=== PATIENT | female | born 1945 | race Caucasian/White ===

== ENCOUNTER → 2017-03-24 | Outpatient (CLI) | payer MEDICARE, OTHER ==
[~2017-03-24] MED LIST: AC325T PO; ACID REDUCER; AMIO100T2; ASP325TEC PO; ASP81TEC PO; ASPIRIN; CALCIUM; DLT30T PO; HCT25T PO; MULT-608 PO; MULTIVITAMIN; NF-TYLARTH PO; OMEP20CA12 PO; OXYC-12 PO; PRV20T PO
--- NOTE | 2017-03-24 13:45 | Diagnostic Imaging Report ---
INDICATION: Lower abdominal pain in postmenopausal patient. FINDINGS: Both transabdominal and transvaginal imaging is performed. There is moderate amount of bowel which obscures the adnexal regions. The uterus measures 4.6 x 3.4 x 2.1 cm with endometrial thickness of 0.3 cm. There is no evidence of mass in the pelvis. There is no significant free fluid. IMPRESSION: Limited examination without abnormality seen in the postmenopausal uterus. The ovaries were not identified due to overlying bowel. Dictated by: Dictated on workstation # [id number]
== END ==
LOC: RAD 10:50
PROVIDERS: ATTEND Internal Medicine
DX: R10.84 Generalized abdominal pain (principal)
CPT/HCPCS: 76830; 76856

== ENCOUNTER → 2017-04-01 | Outpatient (CLI) | payer MEDICARE, OTHER ==
[~2017-04-01] MED LIST changes: +IOHEXOL 350 MG/ML 100 ML (OMNIPAQUE 350) VIAL IV ONE
[2017-04-01 10:46] LABS: BLOOD UREA NITROGEN 13 MG/DL (7-18); BUN/CREATININE RATIO 17; CREATININE SERUM 0.77 MG/DL (0.60-1.30); GFR ESTIMATED > 60
[2017-04-01] MEDS: CATHETER FLUSH 10 ML SYR IV PRN ×2 (11:46→12:01)
--- NOTE | 2017-04-01 15:19 | Diagnostic Imaging Report ---
PROCEDURE: CT abdomen and pelvis with contrast. TECHNIQUE: Multiple contiguous axial images were obtained through the abdomen and pelvis after administration of intravenous contrast. INDICATION: Generalized abdominal pain. 100 mL of Omnipaque 350 is administered intravenously. FINDINGS: The lung bases appear clear. There is a mass in the left suprarenal region containing fat and soft tissue densities with measurements of 4.7 x 3.5 x 4.3 cm. 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 There is evidence of prior cholecystectomy with mild prominence of the CBD caliber. The spleen is not enlarged. The pancreas appears unremarkable. The kidneys have symmetric enhancement and contrast excretion. There is a simple-appearing cyst in the lower pole of the right kidney measuring 3.4 cm. The abdominal aorta is normal in caliber. No para-aortic significantly enlarged node is seen. There is diverticulosis mostly within the sigmoid colon with no evidence of diverticulitis. No bowel obstruction. There is no significant free fluid or fluid collection in the abdomen or pelvis. There is scoliosis of the lumbar spine convex to the right centered at L3 level with significant associated disc and facet degenerative changes. Significant degenerative changes at the SI joints also seen. IMPRESSION: 1. Diverticulosis. No diverticulitis. 2. Fat-containing 4.7 cm mass appears to arise from the left adrenal gland, suggestive of a myolipoma. Dictated by: Dictated on workstation # [id number]
== END ==
LOC: RAD 10:07
PROVIDERS: ATTEND Internal Medicine
DX: Z00.00 Encounter for general adult medical examination without abnormal findings (principal); R10.84 Generalized abdominal pain
CPT/HCPCS: 36415; 74177; 82565; 84520

== ENCOUNTER → 2017-06-09 | Outpatient (CLI) | payer MEDICARE, OTHER ==
[~2017-06-09] MED LIST changes: -IOHEXOL 350 MG/ML 100 ML (OMNIPAQUE 350) VIAL IV ONE
== END ==
LOC: CARD 10:02
PROVIDERS: ATTEND Physician Assistant
DX: I65.23 Occlusion and stenosis of bilateral carotid arteries (principal); K21.9 Gastro-esophageal reflux disease without esophagitis; R00.2 Palpitations; I27.2 Other secondary pulmonary hypertension
CPT/HCPCS: 93306

== ENCOUNTER 2017-06-29 17:45 | Emergency (ER) | payer MEDICARE, OTHER ==
[~2017-06-29] VITALS: Ht 157.5 cm; Wt 87.1 kg
--- NOTE | 2017-06-29 19:29 | Diagnostic Imaging Report ---
INDICATION: Injury to left second toe AP and lateral and oblique views of the left toes were obtained. There are diffuse degenerative changes of the interphalangeal joints. There is degenerative change of the first MTP joint. No acute fracture or acute bony abnormality is visualized. IMPRESSION: No acute fracture or acute bony abnormality. 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 Dictated by: Dictated on workstation # [id number]
--- NOTE | 2017-06-29 19:41 | ED Lower Extremity ---
General Chief Complaint: Lower Extremity Stated Complaint: L FOOT TOE INJ Nursing Triage Note: pt was walking earlier et she felt like her left 2nd toe curled under et she felt a pop. bruising noted at distal joint. pt c/o persistent pain et decreased ROM. Nursing Sepsis Screen: No Definite Risk Source: patient Exam Limitations: no limitations History of Present Illness Time seen by provider: 19:41 Initial Comments 72-year-old female patient presents to the emergency department with complaints of left second toe pain after bending the toe under her foot when she tripped. Denies falling, hitting her head, neck pain, back pain. Location Injury Occurred: home Onset: this morning Pain/Injury Location: left 2nd toe Method of Injury: other (tripped) Modifying Factors: Worse With Movement Allergies and Home Medications Allergies Coded Allergies: Sulfa(Sulfonamide Antibiotics) (Verified Allergy, Unknown, 02/09/06) Uncoded Allergies: TAPE (Allergy, Unknown, 02/09/06) Home Medications Aspirin 81 Mg Tabec, 81 MG PO EVERY OTHER DAY, (Reported) Diltiazem Hcl 30 Mg Tab, 1 TAB PO QID, (Reported) Hydrochlorothiazide 25 Mg Tablet, 1 EACH PO DAILY, (Reported) Multivitamins 1 Tab Tablet, 1 TAB PO DAILY, (Reported) Omeprazole 20 Mg Capsule.dr, 1 CAP PO DAILY, #30 (Reported) Oxycodone Hcl/Acetaminophen 1 Each Tablet, 1-2 TAB PO Q4HRS. PRN, #90 Ref 0 ( Reported) Pravastatin Sod 20 Mg Tab, 20 MG PO DAILY, (Reported) Constitutional: no symptoms reported Musculoskeletal: see HPI Skin: change in color (bruising left second toe) Psychiatric/Neurological: Denies Numbness, Denies Paresthesia, Denies Tingling , Denies Weakness All Other Systems Reviewed Negative Unless Noted: Yes (Negative excepted noted.) Past Ozztyph-Pwpuqp-Xjsfbp Hx Patient Social History Alcohol Use: Denies Use Recreational Drug Use: No Smoking Status: Never a Smoker 2nd Hand Smoke Exposure: No Recent Foreign Travel: No Contact w/Someone Who Travel: No Recent Infectious Disease Expo: No Recent Hopitalizations: No Immunizations Up To Date Tetanus Booster (TDap): Unknown Date of Pneumonia Vaccine: Sep 01, 2011 Date of Influenza Vaccine: Sep 30, 2012 Seasonal Allergies Seasonal Allergies: No Surgeries HX Surgeries: No Surgeries: Orthopedic Respiratory Hx Respiratory Disorders: No Cardiovascular Hx Cardiac Disorders: Yes Cardiac Disorders: Atrial Fibrillation, High Cholesterol, Hypertension Neurological Hx Neurological Disorders: No Reproductive System Hx Reproductive Disorders: No Genitourinary Hx Genitourinary Disorders: No Gastrointestinal Hx Gastrointestinal Disorders: Yes Gastrointestinal Disorders: Gastroesophageal Reflux, Gall Bladder Disease Musculoskeletal Hx Musculoskeletal Disorders: Yes (DJD) Musculoskeletal Disorders: Arthritis Endocrine Hx Endocrine Disorders: No HEENT HX ENT Disorders: No Psychosocial Hx Psychiatric Problems: No Integumentary HX Skin/Integumentary Disorder: No Blood Transfusions Hx Blood Disorders: No Reviewed Nursing Assessment Reviewed/Agree w Nursing PMH: Yes Family Medical History Significant Family History: No Pertinent Family Hx Physical Exam Vital Signs Vital Sign - Last 12Hours 06/29/17 06/29/17 18:09 19:56 Temp 97.1 Pulse 67 Resp 18 B/P (MAP) 163/64 Pulse Ox 94 O2 Delivery Room Air Capillary Refill : Less Than 3 Seconds General Appearance: WD/WN, no apparent distress Cardiovascular: normal peripheral pulses, no edema Legs: bilateral leg non-tender, bilateral leg normal inspection, bilateral leg normal range of motion, bilateral leg no evidence of injury Knees: bilateral knee non-tender, bilateral knee normal inspection, bilateral knee normal range of motion, bilateral knee no evidence of injury Ankles: bilateral ankle non-tender, bilateral ankle normal inspection, bilateral ankle normal range of motion, bilateral ankle no evidence of injury Feet: right foot non-tender, right foot normal inspection, bilateral foot normal range of motion, right foot no evidence of injury, left foot bone tenderness (distal left second toe), left foot ecchymosis (distal left second toe), left foot pain (left second toe), left foot soft tissue tenderness (left second toe) Neurologic/Tendon: normal sensation, normal motor functions, normal tendon functions, responds to pain, no evidence tendon injury Neurologic/Psychiatric: no motor/sensory deficits, alert, normal mood/affect, oriented x 3 Skin: normal color, warm/dry, ecchymosis (ecchymosis left second toe) Progress/Results/Core Measures Results/Orders My Orders Orders - PEDRO HUNT Toe(S) (06/29/17 19:08) Vital Signs/I&O Vital Sign - Last 12Hours 06/29/17 06/29/17 18:09 19:56 Temp 97.1 97.0 Pulse 67 65 Resp 18 18 B/P (MAP) 163/64 Pulse Ox 94 O2 Delivery Room Air Blood Pressure Mean: 97 Diagnostic Imaging Diagonstic Imaging: Xray Plain Films/CT/US/NM/MRI: other (left foot) Comments There are diffuse degenerative changes of the interphalangeal joints. There is degenerative change of the first MTP joint. No acute fracture or acute bony abnormality is visualized. IMPRESSION: No acute fracture or acute bony abnormality. 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 Dictated by: Dictated on workstation # [id number] Reviewed: Reviewed by Me (radiology report reviewed by me) Departure Communication Progress Notes Diagnostic findings discussed with the patient. Plan for discharge to home. Impression Impression: Primary Impression: Sprain of toe Qualified Codes: S93.509A - Unspecified sprain of unspecified toe(s), initial encounter Disposition: HOME, SELF-CARE Condition: Improved Departure-Patient Inst. Decision time for Depature: 19:49 Referrals: ABDIEL POLO DO (PCP/Family) Primary Care Physician Patient Instructions: Toe Injury (DC) Add. Discharge Instructions: All discharge instructions reviewed with patient and/or family. Voiced understanding. Continue usual home medications. Tylenol extra strength over- the-counter as directed for pain. Ibuprofen 800 mg by mouth every 8 hours as needed for pain. Elevate the foot on pillows, ice pack for 20 minute intervals as needed for pain. Collins tape the toes as instructed. Follow-up with your family practitioner for recheck if no improvement in symptoms in 7-10 days. Return to the emergency department for worsened symptoms or any other concerns. PEDRO HUNT Jun 29, 2017 19:41
[2017-06-29 19:56] VITALS: BP 154/62
== END 2017-06-29 19:54 | disposition home or self-care (01) ==
LOC: EDUNIT# 17:45 → ER 17:46
DX: S93.515A Sprain of interphalangeal joint of left lesser toe(s), initial encounter (principal); M19.072 Primary osteoarthritis, left ankle and foot; K21.9 Gastro-esophageal reflux disease without esophagitis; I48.91 Unspecified atrial fibrillation; E78.00 Pure hypercholesterolemia, unspecified; I10 Essential (primary) hypertension; Z98.890 Other specified postprocedural states; W18.40XA Slipping, tripping and stumbling without falling, unspecified, initial encounter; Y92.009 Unspecified place in unspecified non-institutional (private) residence as the place of occurrence of the external cause
CPT/HCPCS: 73660; 99283

== ENCOUNTER → 2017-10-12 | Outpatient (CLI) | payer MEDICARE, OTHER ==
--- NOTE | 2017-10-13 10:52 | Diagnostic Imaging Report ---
Bilateral screening mammogram 2D views with tomosynthesis The current study was also evaluated with a Computer Aided Detection (CAD) system. Indication: Screening. No current complaints stated on the questionnaire. COMPARISON: 10/06/16. FINDINGS: The breasts are composed of heterogeneously dense parenchyma which may decrease mammographic sensitivity. Benign-appearing calcifications are noted. Allowing for technique and positional differences, no suspicious change is seen. IMPRESSION: Dense breasts with no definite change. ACR BI-RADS Category 2: Benign findings. Result letter will be mailed to the patient. Note: At least 10% of breast cancer is not imaged by mammography. Dictated by: Dictated on workstation # [id number]
== END ==
LOC: RAD 09:57
PROVIDERS: ATTEND Internal Medicine
DX: Z12.31 Encounter for screening mammogram for malignant neoplasm of breast (principal)
CPT/HCPCS: 77067

== ENCOUNTER → 2018-01-04 | Outpatient (CLI) | payer MEDICARE, OTHER ==
--- NOTE | 2018-01-04 12:35 | Diagnostic Imaging Report ---
INDICATION: Intractable headaches. TECHNIQUE: Noncontrast brain CT is performed. COMPARISON: There is no prior study for comparison. FINDINGS: There are mild atrophic changes. There are no extra-axial fluid collections. No intracranial hemorrhage. No intracranial mass or mass effect. No midline shift. The ventricles are normal in size and position. There are no acute parenchymal abnormalities in the brain. Calvarial windows are unremarkable. The visualized portions of the paranasal sinuses show no overt opacification. There is some opacification of the mastoid air cells on the left side. IMPRESSION: No acute intracranial abnormality or hemorrhage. Partial opacification of left mastoid air cells. No other significant findings. Dictated by: Dictated on workstation # [id number]
== END ==
LOC: RAD 11:32
PROVIDERS: ATTEND Internal Medicine
DX: G44.211 Episodic tension-type headache, intractable (principal); H74.8X2 Other specified disorders of left middle ear and mastoid
CPT/HCPCS: 70450

== ENCOUNTER 2018-06-07 05:17 | Emergency (ER) | payer MEDICARE ==
[~2018-06-07] VITALS: Ht 157.5 cm; Wt 87.1 kg
[2018-06-07] MEDS ORDERED: ASPIRIN 81 MG CHEW (CHILDREN'S ASA) PO ONE (05:30)
[2018-06-07 05:59] LABS: BASOPHILS % (AUTO) 0 % (0-10); EOSINOPHILS # (AUTO) 0.1 10^3/uL (0.0-0.3); EOSINOPHILS % (AUTO) 2 % (0-10); HEMATOCRIT 43 % (35-52); HEMOGLOBIN 14.4 G/DL (11.5-16.0); LYMPHOCYTES # (AUTO) 1.9 X 10^3 (1.0-4.0); LYMPHOCYTES % (AUTO) 33 % (12-44); MEAN CORPUSCULAR HEMOGLOBIN 31 PG (25-34); MEAN CORPUSCULAR HGB CONC 33 G/DL (32-36); MEAN CORPUSCULAR VOLUME 95 FL (80-99); MEAN PLATELET VOLUME 10.7 FL (7.4-10.4); MONOCYTES # (AUTO) 0.6 X 10^3 (0.0-1.0); MONOCYTES % (AUTO) 11 % (0-12); NEUTROPHILS % (AUTO) 54 % (42-75); PLATELET COUNT 173 10^3/uL (130-400); RED BLOOD COUNT 4.58 10^6/uL (4.35-5.85); RED CELL DISTRIBUTION WIDTH 12.9 % (10.0-14.5); WHITE BLOOD COUNT 5.6 10^3/uL (4.3-11.0)
--- NOTE | 2018-06-07 06:07 | ED Chest Pain ---
General Chief Complaint: Cardiac/General Problems Stated Complaint: CP Nursing Triage Note: patient reports palpitations starting at 0400 Nursing Sepsis Screen: No Definite Risk Source: patient Exam Limitations: no limitations History of Present Illness Date Seen by Provider: Jun 07, 2018 Time Seen by Provider: 05:21 Initial Comments Here with report of palpitations that started about 4 a.m. Patient states that she woke up and then shortly afterwards noted the palpitations. She is having some chest discomfort with this. She states that's not too bad that she is having a little bit more back pain. Does have history of atrial fibrillation. Denies vomiting or sweating but does feel weak. Timing/Duration: 1-3 hours, changing over time Severity/Quality: moderate, severe, pressure, other (palpitations) Location: central Radiation: arms (left) Prior CP/Workup: echocardiography, stress test Modifying Factors: improves with rest ASA po ARTIFICIAL FLOWERS SUPERVISOR: No NTG SL ARTIFICIAL FLOWERS SUPERVISOR: No Associated Symptoms: fatigue; No fever/chills; nausea/vomiting Allergies and Home Medications Allergies Coded Allergies: Sulfa(Sulfonamide Antibiotics) (Verified Allergy, Unknown, 02/09/06) Uncoded Allergies: TAPE (Allergy, Unknown, 02/09/06) Home Medications Aspirin 81 Mg Tabec, 81 MG PO EVERY OTHER DAY, (Reported) Diltiazem Hcl 30 Mg Tab, 1 TAB PO QID, (Reported) Hydrochlorothiazide 25 Mg Tablet, 1 EACH PO DAILY, (Reported) Multivitamins 1 Tab Tablet, 1 TAB PO DAILY, (Reported) Omeprazole 20 Mg Capsule.dr, 1 CAP PO DAILY, (Reported) Pravastatin Sod 20 Mg Tab, 20 MG PO DAILY, (Reported) Patient Home Medication List Home Medication List Reviewed: Yes Review of Systems Constitutional: see HPI; No chills, No fever EENTM: No Symptoms Reported Respiratory: Denies Cough, Denies Shortness of Air Cardiovascular: Chest Pain; Denies Edema; Irregular Heart Rate, Palpitations Gastrointestinal: See HPI Genitourinary: No Symptoms Reported Musculoskeletal: back pain; No muscle pain, No muscle stiffness Skin: no symptoms reported All Other Systems Reviewed Negative Unless Noted: Yes Past Eokvivv-Xfejmj-Jeaaxg Hx Past Med/Social Hx: Reviewed Nursing Past Med/Soc Hx Patient Social History Alcohol Use: Denies Use Recreational Drug Use: No Smoking Status: Former Smoker Type Used: Cigarettes 2nd Hand Smoke Exposure: No Recent Foreign Travel: No Contact w/Someone Who Travel: No Recent Infectious Disease Expo: No Recent Hopitalizations: No Physical Abuse: No Sexual Abuse: No Immunizations Up To Date Tetanus Booster (TDap): Unknown Date of Pneumonia Vaccine: Sep 01, 2011 Date of Influenza Vaccine: Sep 30, 2012 Seasonal Allergies Seasonal Allergies: No Past Medical History Surgeries: Yes Orthopedic Respiratory: No Cardiac: Yes Atrial Fibrillation, High Cholesterol, Hypertension Neurological: No Reproductive Disorders: No Genitourinary: No Gastrointestinal: Yes Gastroesophageal Reflux, Gall Bladder Disease Musculoskeletal: Yes (DJD) Arthritis Endocrine: No HEENT: No Cancer: No Psychosocial: No Nursing Suicide Risk Score: 0 Integumentary: No Blood Disorders: No Family Medical History Reviewed Nursing Family Hx No Pertinent Family Hx Physical Exam Vital Signs Vital Signs - First Documented 06/07/18 06/07/18 05:24 05:27 Temp 98.2 Pulse 96 Resp 18 B/P (MAP) 153/111 (125) Pulse Ox 100 O2 Delivery Room Air Capillary Refill : Less Than 3 Seconds Height, Weight, BMI Height: 5', 2.00" Weight: 192lbs 0.0oz, 87.026994qu Method:Stated ,36.31BMI General Appearance: WD/WN, Anxious, Mild Distress HEENT: PERRL/EOMI, Pharynx Normal Neck: Non Tender, Supple Respiratory: Chest Non Tender, Lungs Clear, Normal Breath Sounds Cardiovascular: Irregularly Irregular, Tachycardia, Other (patient converted to sinus rhythm during exam heart rate in the 70s and 80s) Gastrointestinal: Non Tender, Soft Extremity: Normal Range of Motion, Non Tender Neurologic/Psychiatric: Alert, Oriented x3 Skin: Normal Color, Warm/Dry Progress/Results/Core Measures Results/Orders Lab Results Laboratory Tests Test 06/07/18 05:50 Range/Units White Blood Count 5.6 4.3-11.0 10^3/uL Red Blood Count 4.58 4.35-5.85 10^6/uL Hemoglobin 14.4 11.5-16.0 G/DL Hematocrit 43 35-52 % Mean Corpuscular Volume 95 80-99 FL Mean Corpuscular Hemoglobin 31 25-34 PG Mean Corpuscular Hemoglobin Concent 33 32-36 G/DL Red Cell Distribution Width 12.9 10.0-14.5 % Platelet Count 173 130-400 10^3/uL Mean Platelet Volume 10.7 H 7.4-10.4 FL Neutrophils (%) (Auto) 54 42-75 % Lymphocytes (%) (Auto) 33 12-44 % Monocytes (%) (Auto) 11 0-12 % Eosinophils (%) (Auto) 2 0-10 % Basophils (%) (Auto) 0 0-10 % Neutrophils # (Auto) 3.0 1.8-7.8 X 10^3 Lymphocytes # (Auto) 1.9 1.0-4.0 X 10^3 Monocytes # (Auto) 0.6 0.0-1.0 X 10^3 Eosinophils # (Auto) 0.1 0.0-0.3 10^3/uL Basophils # (Auto) 0.0 0.0-0.1 10^3/uL Prothrombin Time 12.9 12.2-14.7 SEC INR Comment 1.0 0.8-1.4 Activated Partial Thromboplast Time 30 24-35 SEC Sodium Level 143 135-145 MMOL/L Potassium Level 3.3 L 3.6-5.0 MMOL/L Chloride Level 106 98-107 MMOL/L Carbon Dioxide Level 26 21-32 MMOL/L Anion Gap 11 5-14 MMOL/L Blood Urea Nitrogen 13 7-18 MG/DL Creatinine 0.80 0.60-1.30 MG/DL Estimat Glomerular Filtration Rate > 60 BUN/Creatinine Ratio 16 Glucose Level 105 70-105 MG/DL Calcium Level 9.9 8.5-10.1 MG/DL Magnesium Level 2.0 1.8-2.4 MG/DL Total Bilirubin 0.5 0.1-1.0 MG/DL Aspartate Amino Transf (AST/SGOT) 26 5-34 U/L Alanine Aminotransferase (ALT/SGPT) 16 0-55 U/L Alkaline Phosphatase 55 40-136 U/L Myoglobin 29.1 10.0-92.0 NG/ML Troponin I < 0.30 <0.30 NG/ML Total Protein 7.3 6.4-8.2 GM/DL Albumin 4.2 3.2-4.5 GM/DL My Orders Orders - WALDEMAR ESPINOZA MD Cbc With Automated Diff (06/07/18 05:20) Magnesium (06/07/18 05:20) Chest 1 View, Ap/Pa Only (06/07/18 05:20) Ekg Tracing (06/07/18 05:20) Cardiac Profile 1 (06/07/18 05:20) Comprehensive Metabolic Panel (06/07/18 05:20) Myoglobin Serum (06/07/18 05:20) Protime With Inr (06/07/18 05:20) Partial Thromboplastin Time (06/07/18 05:20) O2 (06/07/18 05:20) Monitor-Rhythm Ecg Trace Only (06/07/18 05:20) Lipid Panel (06/08/18 06:00) Aspirin Chewable Tablet (Baby Aspirin Ch (06/07/18 05:30) Saline Lock/Iv-Start (06/07/18 05:20) Medications Given in ED Current Medications Medications Dose Ordered Sig/Ramiro Route Start Time Stop Time Status Last Admin Dose Admin Aspirin 324 mg ONCE ONCE PO 06/07/18 05:30 06/07/18 05:31 DC 06/07/18 05:41 324 MG Vital Signs/I&O 06/07/18 06/07/18 05:24 05:27 Temp 98.2 Pulse 96 Resp 18 B/P (MAP) 153/111 (125) Pulse Ox 100 O2 Delivery Room Air Blood Pressure Mean: 125 Progress Progress Note : Progress Note Seen and evaluated. IV, labs, EKG and chest x-ray ordered. ASA 324 mg by mouth given. During IV start, patient converted to sinus rhythm initially in the rate of 90s but then settled down to the rate of 70s and 80s. States pain is a little better after. Monitor patient. 0640: I have talked with the patient at length about further testing. She remains in sinus rhythm. Labs reviewed and no significant findings. She has only been taking her diltiazem twice a day a low it is prescribed 3 times daily and can be taken 4 times daily as needed. She has done this to save cost. Her edi specialist is Dr. Barrios and I 'm not sure he knows about that. Patient states that she will return to 3 times daily on the diltiazem. She takes are aspirin 4 times a week and this is because she had stomach upset when she was taken at 7 times a week. This needs to be discussed with Dr. Barrios as well although she reports that he knows about this. Patient does not want to stay for further testing since she is feeling better. We did talk about repeating the enzymes at the 4 hour milo and she states that she would just like to go home. She denies significant chest pain now and states that it was only palpitations and she could feel her regular heartbeat. We discussed the risk and benefits and patient understands that she could have serious cardiac event that we won't find if we did not evaluate and this could be life-threatening. Discharged home with return precautions. Patient verbalized understanding instructions and agreement with plan. Initial ECG Impression Date: Jun 07, 2018 Initial ECG Impression Time: 05:19 Initial ECG Rate: 169 Initial ECG Rhythm: A Fib/Flutter Initial ECG Impression: Atrial Fibrillation w/RVR Comment Atrial fibrillation with rapid ventricular response. Will axis. No evidence of ST elevation UT. Change from previous. Interpreted by me. Diagnostic Imaging Diagonstic Imaging: Xray Plain Films/CT/US/NM/MRI: chest ([facility] Comments [facility] [place], [place] NAME: FRIDA ALMAGUER [facility] REC#: [id number] PT STATUS: REG ER : 1945 PHYSICIAN: WALDEMAR ESPINOZA MD ADMIT DATE: 06/07/18/ER Draft Date of Exam:06/07/18 CHEST 1 VIEW, AP/PA ONLY CLINICAL INDICATION: Patient with complains of heart palpitations. EXAM: Portable chest x-ray upright view. COMPARISONS: Chest x-ray dated 12/07/2012. FINDINGS: Lungs/pleura: Lungs are clear. There is no pneumothorax. There is no pleural effusion. Mediastinum: Unremarkable. Pulmonary vasculature: Unremarkable. Heart: Unremarkable. Bones/extrathoracic soft tissue: There are mildly hypertrophic spurs involving the thoracic spine. There are degenerative spurs involving the acromioclavicular joints. IMPRESSION: There is no radiographic evidence of acute cardiopulmonary process. Dictated on workstation # [id number] Dict: 06/07/18 0602 Trans: 06/07/18 0605 [id number] Interpreted by: JOHN MACHADO MD Electronically signed by: Departure Impression Primary Impression: Paroxysmal atrial fibrillation with rapid ventricular response Additional Impression: Chest pain Qualified Codes: R07.9 - Chest pain, unspecified Disposition: 01 HOME, SELF-CARE Condition: Stable Departure-Patient Inst. Decision time for Depature: 06:44 Referrals: ABDIEL POLO DO (PCP/Family) Primary Care Physician Patient Instructions: Chest Pain (DC), Atrial Fibrillation (DC) Add. Discharge Instructions: All discharge instructions reviewed with patient and/or family. Voiced understanding. Call Dr. Barrios's office today for appointment within the next week or when he returns from vacation. Follow-up with your primary doctor this week for recheck and further evaluation. Return for worse pain, breathing problems, weakness, vomiting, sweating or chest pain or other concerns as needed. You need to resume taking your diltiazem 3 times a day. Take your other medications as prescribed. Copy Copies To 1: GAURI BARRIOS MD Copies To 2: ABDIEL POLO TIMOTHY D MD Jun 07, 2018 06:07
[2018-06-07 06:11] LABS: PROTHROMBIN TIME PATIENT 12.9 SEC (12.2-14.7)
[2018-06-07 06:18] LABS: ALANINE AMINOTRANSFERASE 16 U/L (0-55); ALBUMIN 4.2 GM/DL (3.2-4.5); ALKALINE PHOSPHATASE 55 U/L (40-136); BILIRUBIN,TOTAL 0.5 MG/DL (0.1-1.0); BUN/CREATININE RATIO 16; CALCIUM 9.9 MG/DL (8.5-10.1); CARBON DIOXIDE 26 MMOL/L (21-32); CHLORIDE 106 MMOL/L (98-107); GFR ESTIMATED > 60; GLUCOSE 105 MG/DL (70-105); POTASSIUM 3.3 MMOL/L (3.6-5.0); SODIUM 143 MMOL/L (135-145); TOTAL PROTEIN 7.3 GM/DL (6.4-8.2)
[2018-06-07 06:24] LABS: MYOGLOBIN SERUM 29.1 NG/ML (10.0-92.0)
[2018-06-07 06:49] VITALS: BP 139/72
== END 2018-06-07 06:53 | disposition home or self-care (01) ==
LOC: EDUNIT# 05:17 → ER 05:19
DX: I48.0 Paroxysmal atrial fibrillation (principal); R07.9 Chest pain, unspecified; I48.91 Unspecified atrial fibrillation; E78.00 Pure hypercholesterolemia, unspecified; I10 Essential (primary) hypertension; K21.9 Gastro-esophageal reflux disease without esophagitis; Z98.890 Other specified postprocedural states; Z87.891 Personal history of nicotine dependence; Z79.82 Long term (current) use of aspirin; Z88.2 Allergy status to sulfonamides; Z91.048 Other nonmedicinal substance allergy status
CPT/HCPCS: 36415; 71045; 80053; 83735; 83874; 84484; 85025; 85610; 85730; 93005; 93041

== ENCOUNTER → 2018-09-13 | Outpatient (CLI) | payer MEDICARE | LOC: CARD 13:17 | PROVIDERS: ATTEND Internal Medicine Cardiovascular Disease | DX: R00.2 Palpitations (principal); I47.1 Supraventricular tachycardia; I27.20 Pulmonary hypertension, unspecified; R91.1 Solitary pulmonary nodule; I08.1 Rheumatic disorders of both mitral and tricuspid valves | CPT/HCPCS: 93306 ==

== ENCOUNTER 2019-01-12 05:24 | Emergency (ER) | payer MEDICARE ==
[~2019-01-12] VITALS: Ht 154.9 cm; Wt 87.1 kg
--- NOTE | 2019-01-12 06:34 | ED Cardiac General ---
History of Present Illness General Chief Complaint: Cardiac/General Problems Stated Complaint: IRREGULAR HRT BEAT Nursing Triage Note: PT AMB TO ROOM #5 W/O DIFFICULTY. A&OX4. C/O IRREGULAR HEART RATE. PT REPORTS UPON RISE THIS AM PT FELT THOUGH HER HEART WAS BEATING FAST. PT STATES, "I JUST FELT LIKE MY HEART WAS POUNDING SO HARD." PT REPORTS HX AFIB. DENIES PAIN. Source: patient Exam Limitations: no limitations History of Present Illness Date Seen by Provider: Jan 12, 2019 Time Seen by Provider: 06:05 Initial Comments Here with report of irregular fast heart rate is morning. States that she was having a dream and was panicking and then woke up and felt her heart beat was fast. It did not stop with using vagal maneuvers of coughing. Ultimately she got her neighbor bring her in. On the way here in the waiting room the past heartbeat stopped. She has known history of A. fib with RVR and she is on diltiazem for that. She is also on atenolol. Denied chest pain or breathing problems with that. Currently has no concerns and actually really does not want any further evaluation. Timing/Duration: 1/2 hour, gone now Severity: mild Location: central Activities at Onset: sleep Modifying Factors: improves with rest NTG SL FISHING ROD MECHANIC: No ASA po FISHING ROD MECHANIC: Yes (81 mg daily) Associated Systoms: No Chest Pain, No Nausea/Vomiting, No Shortness of Air, No Weakness Allergies and Home Medications Allergies Coded Allergies: Sulfa(Sulfonamide Antibiotics) (Verified Allergy, Unknown, 02/09/06) Uncoded Allergies: TAPE (Allergy, Unknown, 02/09/06) Home Medications Aspirin 81 Mg Tabec, 81 MG PO EVERY OTHER DAY, (Reported) Diltiazem Hcl 30 Mg Tab, 1 TAB PO QID, (Reported) Hydrochlorothiazide 25 Mg Tablet, 1 EACH PO DAILY, (Reported) Multivitamins 1 Tab Tablet, 1 TAB PO DAILY, (Reported) Omeprazole 20 Mg Capsule.dr, 1 CAP PO DAILY, (Reported) Pravastatin Sod 20 Mg Tab, 20 MG PO DAILY, (Reported) Patient Home Medication List Home Medication List Reviewed: Yes Review of Systems Review of Systems Constitutional: no symptoms reported Respiratory: No Symptoms Reported Cardiovascular: See HPI; Denies Chest Pain; Irregular Heart Rate, Palpitations Gastrointestinal: Denies Nausea, Denies Vomiting Psychiatric/Neurological: See HPI Past Txnikoy-Tkrrjb-Wccapt Hx Past Med/Social Hx: Reviewed Nursing Past Med/Soc Hx Patient Social History Alcohol Use: Denies Use Recreational Drug Use: No Smoking Status: Never a Smoker 2nd Hand Smoke Exposure: No Recent Foreign Travel: No Contact w/Someone Who Travel: No Recent Infectious Disease Expo: No Recent Hopitalizations: No Immunizations Up To Date Tetanus Booster (TDap): Unknown Date of Pneumonia Vaccine: Sep 01, 2011 Date of Influenza Vaccine: Sep 30, 2012 Seasonal Allergies Seasonal Allergies: No Past Medical History Surgeries: Yes (ABD EXPLORE) Orthopedic Respiratory: No Cardiac: Yes Atrial Fibrillation, High Cholesterol, Hypertension Neurological: No Reproductive Disorders: No Genitourinary: No Gastrointestinal: Yes Gastroesophageal Reflux, Gall Bladder Disease Musculoskeletal: Yes (DJD) Arthritis Endocrine: No HEENT: No Cancer: No Psychosocial: No Integumentary: No Blood Disorders: No Family Medical History Reviewed Nursing Family Hx No Pertinent Family Hx Physical Exam Vital Signs Vital Signs - First Documented 01/12/19 05:37 Temp 96.5 Pulse 67 Resp 16 B/P (MAP) 145/78 (100) Pulse Ox 95 O2 Delivery Room Air Capillary Refill : Less Than 3 Seconds Height, Weight, BMI Height: 5'1.00" Weight: 192lbs. 0.0oz. [id number]; 36.31 BMI Method:Stated General Appearance: No Apparent Distress, WD/WN Respiratory: Lungs Clear, Normal Breath Sounds Cardiovascular: Regular Rate, Rhythm, No Murmur Neurologic/Psychiatric: Alert, Oriented x3 Progress/Results/Core Measures Results/Orders Vital Signs/I&O 01/12/19 05:37 Temp 96.5 Pulse 67 Resp 16 B/P (MAP) 145/78 (100) Pulse Ox 95 O2 Delivery Room Air Blood Pressure Mean: 100 Progress Progress Note : Progress Note Seen and evaluated. Patient has requested that we do not do further evaluation. Basic physical exam done and we did discuss outpatient options for if she has palpitations or rapid heart rate. She will follow-up with Dr. Barrios and Dr. Polo as needed. Discharged home with return precautions. Patient and family verbalize understanding instructions and agreement with plan. Departure Impression Primary Impression: Rapid palpitations Disposition: 01 HOME, SELF-CARE Condition: Improved Departure-Patient Inst. Decision time for Depature: 06:32 Referrals: ABDIEL POLO DO (PCP/Family) Primary Care Physician GAURI BARRIOS MD Patient Instructions: Atrial Fibrillation (DC), Paroxysmal Supraventricular Tachycardia (DC) Add. Discharge Instructions: All discharge instructions reviewed with patient and/or family. Voiced understanding. Continue home medicines as previously prescribed. If you find that you have rapid heart rate, you may do the cough maneuver that you have done before or blow in the syringe as discussed. If the palpitations and fast heart rate last more than a few minutes despite those maneuvers then you may take one additional diltiazem tablet at that time. If you have no resolution after that within 30 minutes then come to the emergency department. If you have chest pain , breathing problems, sweating or vomiting at any time with the palpitations then you should go immediately to the emergency department. Return for other concerns as needed. Follow-up with your doctor for recheck and further evaluation both with Dr. Barrios and Dr. Polo. WALDEMAR ESPINOZA MD Jan 12, 2019 06:34
[2019-01-12 06:45] VITALS: BP 121/104
== END 2019-01-12 06:45 | disposition home or self-care (01) ==
LOC: EDUNIT# 05:24 → ER 05:26
DX: R00.2 Palpitations (principal); I48.91 Unspecified atrial fibrillation; I10 Essential (primary) hypertension; E78.00 Pure hypercholesterolemia, unspecified; K21.9 Gastro-esophageal reflux disease without esophagitis; Z87.19 Personal history of other diseases of the digestive system; Z79.82 Long term (current) use of aspirin; Z91.048 Other nonmedicinal substance allergy status
CPT/HCPCS: 99283

== ENCOUNTER 2019-01-20 10:39 | Outpatient (RCR) | payer MEDICARE | END 2019-04-20 | disposition home or self-care (01) | LOC: CARD 10:39 | PROVIDERS: ATTEND Internal Medicine Cardiovascular Disease | DX: I47.1 Supraventricular tachycardia (principal); R00.2 Palpitations ==

== ENCOUNTER → 2019-04-20 | Outpatient (CLI) | payer MEDICARE ==
--- NOTE | 2019-04-20 12:33 | Diagnostic Imaging Report ---
INDICATION: Routine screening. COMPARISON: 10/12/2017 and 10/06/2016. TECHNIQUE: 2D and 3D bilateral screening mammography was performed with CAD. FINDINGS: Scattered fibroglandular densities are identified bilaterally. There are scattered benign calcifications throughout both breasts. The calcifications in the central left breast appear to be slowly increasing in number. These also demonstrate a somewhat linear orientation. Additional views are recommended. No mass is identified. The axillae are unremarkable. IMPRESSION: The microcalcifications in the central left breast appear to be slowly increasing in number. Additional views are recommended. ACR BI-RADS Category 0: Incomplete. (Needs additional imaging evaluation). Result letter will be mailed to the patient. Note: At least 10% of breast cancer is not imaged by mammography. Dictated by: Dictated on workstation # [id number]
== END ==
LOC: RAD 09:46
PROVIDERS: ATTEND Internal Medicine
DX: Z12.31 Encounter for screening mammogram for malignant neoplasm of breast (principal); R92.0 Mammographic microcalcification found on diagnostic imaging of breast
CPT/HCPCS: 77067

== ENCOUNTER → 2019-04-29 | Outpatient (CLI) | payer MEDICARE ==
--- NOTE | 2019-04-29 20:06 | Diagnostic Imaging Report ---
INDICATION: Left breast calcifications. Patient presents for additional views. TECHNIQUE: Unilateral left 2-D and 3-D diagnostic mammography was performed including magnification CC and ML views as well as conventional 90 degree lateral view. The current study was also evaluated with a Computer Aided Detection (CAD) system. FINDINGS: Calcifications in the mid depth left breast just lateral to the nipple line are noted. These do appear increased in number when compared with prior mammograms. There does appear to be some pleomorphism. Calcifications are somewhat linearly distributed, perhaps in a ductal pattern. No associated soft tissue mass is seen. IMPRESSION: Increasing microcalcifications in the central left breast, as described. DCIS cannot be entirely excluded. Tissue sampling is recommended. These would be amenable to stereotactic biopsy approach. Results and recommendations were discussed with the patient prior to this dictation. ACR BI-RADS Category 4: Suspicious abnormality. Result letter will be mailed to the patient. Note: At least 10% of breast cancer is not imaged by mammography. Dictated by: Dictated on workstation # [id number]
== END ==
LOC: RAD 12:42
PROVIDERS: ATTEND Internal Medicine
DX: N63.20 Unspecified lump in the left breast, unspecified quadrant (principal); R92.0 Mammographic microcalcification found on diagnostic imaging of breast

== ENCOUNTER 2021-07-10 23:43 | Emergency (ER) | payer MEDICARE ==
[~2021-07-10] VITALS: Ht 157.4 cm; Wt 87.5 kg
[2021-07-11] MEDS ORDERED: DOXYCYCLINE 100 MG (VIBRAMYCIN) TABLET PO STA (00:15)
[2021-07-11] MEDS ORDERED: predniSONE 20 MG TAB PO ONE (00:15)
[2021-07-11 00:38] VITALS: BP 159/106
--- NOTE | 2021-07-11 00:44 | ED Cardiac General ---
History of Present Illness General Chief Complaint: Cardiac/General Problems Stated Complaint: AFIB Source: patient Exam Limitations: no limitations History of Present Illness Date Seen by Provider: Jul 11, 2021 Time Seen by Provider: 00:10 Initial Comments Patient is a 76-year-old female with history of paroxysmal atrial fibrillation who presents with palpitations starting 2 hours prior to ED arrival upon lying in bed. She denies chest pain palpitations shortness of breath but reports pounding heart rate. She denies dizziness lightheadedness and headache. She takes atenolol and Cardizem has been compliant with medication. She takes daily baby aspirin is not anticoagulated. She ambulates with steady gait. She denies other symptoms or complaints at this time. No history of CAD. Patient's cdl flatbed truck driver is Dr. Barrios Timing/Duration: 1-3 hours Severity: mild Location: other Activities at Onset: other Prior CP/Workup: other Associated Systoms: Other Allergies and Home Medications Allergies Coded Allergies: Sulfa(Sulfonamide Antibiotics) (Verified Allergy, Unknown, 02/09/06) Uncoded Allergies: TAPE (Allergy, Unknown, 02/09/06) Home Medications Aspirin 81 Mg Tabec, 81 MG PO EVERY OTHER DAY, (Reported) Diltiazem Hcl 30 Mg Tab, 1 TAB PO QID, (Reported) Hydrochlorothiazide 25 Mg Tablet, 1 EACH PO DAILY, (Reported) Multivitamins 1 Tab Tablet, 1 TAB PO DAILY, (Reported) Omeprazole 20 Mg Capsule.dr, 1 CAP PO DAILY, (Reported) Pravastatin Sod 20 Mg Tab, 20 MG PO DAILY, (Reported) Patient Home Medication List Home Medication List Reviewed: Yes Review of Systems Review of Systems Constitutional: see HPI EENTM: See HPI Respiratory: See HPI Cardiovascular: See HPI Gastrointestinal: See HPI Genitourinary: See HPI Musculoskeletal: see HPI Skin: see HPI Endocrine: See HPI Hematologic/Lymphatic: See HPI Past Hstphsg-Akrxad-Mxwhml Hx Immunizations Up To Date Tetanus Booster (TDap): Unknown Seasonal Allergies Seasonal Allergies: No Past Medical History Surgeries: Yes (ABD EXPLORE) Orthopedic Respiratory: No Cardiac: Yes Atrial Fibrillation, High Cholesterol, Hypertension Neurological: No Reproductive Disorders: No Genitourinary: No Gastrointestinal: Yes Gastroesophageal Reflux, Gall Bladder Disease Musculoskeletal: Yes (DJD) Arthritis Endocrine: No HEENT: No Cancer: No Psychosocial: No Integumentary: No Blood Disorders: No Family Medical History No Pertinent Family Hx Physical Exam Vital Signs Capillary Refill : Height, Weight, BMI Height: 5'1.00" Weight: 192lbs. 0.0oz. 87.178591xd; 36.31 BMI Method:Stated General Appearance: No Apparent Distress, WD/WN, Anxious HEENT: PERRL/EOMI Respiratory: Lungs Clear Cardiovascular: Tachycardia Gastrointestinal: Non Tender, Soft Extremity: No Calf Tenderness, Other Neurologic/Psychiatric: Alert, No Motor/Sensory Deficits, cashier general II-XII Norm as Tested Lymphatic: No Adenopathy Focused Exam Sepsis Stage: Ruled Out Progress/Results/Core Measures Results/Orders My Orders Orders - GUILHERME SWARTZ DO Cbc With Automated Diff (07/11/21 00:03) Comprehensive Metabolic Panel (07/11/21:03) Troponin I Fs (07/11/21 00:03) Probnp Fs (07/11/21 00:03) Magnesium (07/11/21 00:03) Protime With Inr (07/11/21 00:03) Diltiazem Injection (Cardizem Injection) (07/11/21 00:15) Prednisone Tablet (Deltasone Tablet) (07/11/21 00:15) Doxycycline Hyclate Tablet (Vibramycin T (07/11/21 00:15) Departure Communication (Admissions) EKG: Atrial fibrillation, rate 132, nonspecific ST-T wave changes with possible ischemia. Patient declines IV, blood draw, chest x-ray. States she feels anxious and does not want any testing done today in the emergency department and that was this mistake for her to come to the ED. I attempted to reassure the patient and treat her anxiety prior to further testing or treatment modalities. Patient declines. She states she was told by her cdl flatbed truck driver she could take an extra dose of medications at return home. She states during her prior episode of A. fib it resolved spontaneously without treatment. I did express to patient my concern that left untreated she is at risk for NV, stroke, and and strongly advised her to stay in the emergency department total she could be stabilized. Patient verbalizes her understanding of the potential harm and threatened atrial fibrillation as to her health but declines further work-up and treatment and requests discharge from the emergency department. Patient will be discharged from the ED AMA per her request. She is further instructed to follow -up with her cdl flatbed truck driver in the morning and to return to the emergency department if she changes her mind regarding further tests and treatment. . Impression Primary Impression: Palpitations Additional Impression: Atrial fibrillation with RVR Disposition: HOME, SELF-CARE Condition: Against Medical Advice Departure-Patient Inst. Decision time for Depature: 00:44 Referrals: ABDIEL POLO DO (PCP/Family) Primary Care Physician Patient Instructions: Atrial Fibrillation Add. Discharge Instructions: Please take an additional dose of Cardizem upon returning home and follow-up with Dr. Barrios's office in the morning. Return to the ED if you change your mind regarding further testing and treatment. All discharge instructions reviewed with patient and/or family. Voiced understanding. GUILHERME SWARTZ DO Jul 11, 2021 00:44
== END 2021-07-11 00:40 | disposition left against medical advice (07) ==
LOC: EDUNIT# 23:43 → ER FS 23:44
DX: R00.2 Palpitations (principal); I48.20 Chronic atrial fibrillation, unspecified; I10 Essential (primary) hypertension; K21.9 Gastro-esophageal reflux disease without esophagitis; E78.00 Pure hypercholesterolemia, unspecified; Z79.899 Other long term (current) drug therapy; Z79.82 Long term (current) use of aspirin
CPT/HCPCS: 93005; 99283

== ENCOUNTER 2022-05-26 08:47 | Emergency (ER) | payer MEDICARE ==
[~2022-05-26] VITALS: Ht 154.9 cm; Wt 88.5 kg
--- NOTE | 2022-05-26 09:23 | ED Cardiac General ---
History of Present Illness General Chief Complaint: Cardiac/General Problems Stated Complaint: AFIB Source: patient Exam Limitations: no limitations History of Present Illness Date Seen by Provider: May 26, 2022 Time Seen by Provider: 09:06 Initial Comments 77-year-old female here with complaints of dizzy and chest pressure. Patient states she is got a history of hypertension and A. fib and sees Dr. Barrios in [place]. Patient does follow-up with as her PCP. Patient has had some lower extremity edema. States she woke up this morning feeling dizzy. She could not move her head due to it making the dizziness worse. She is feeling a little better now but still is feeling dizzy. She also complains about a chest pressure. Patient denies chest pain. States it is in between her breasts substernal that she feels a fluttering. She thinks it might be A. fib. She does take diltiazem and atenolol for the A. fib. Patient is having some short ness of breath as well. She does not complain of any headache or vision changes. She states sometimes after she is outside she will have problems with dizziness due to allergies. She does take Zyrtec. Has tried Flonase and is unable to do Flonase. Patient denies any abdominal pain. No diarrhea. No vomiting. No pain with urination. She does have swelling of the lower extrem ities. She is on some Lasix for that orally she was given some for a few days. Timing/Duration: 1-3 hours Severity: mild Location: substernal Prior CP/Workup: other (follows with Dr. Barrios in [place]) Modifying Factors: improves with rest Allergies and Home Medications Allergies Coded Allergies: Sulfa(Sulfonamide Antibiotics) (Verified Allergy, Unknown, 02/09/06) Uncoded Allergies: TAPE (Allergy, Unknown, 02/09/06) Patient Home Medication List Home Medication List Reviewed: Yes (reviewed with patient. ) Aspirin (Aspirin Ec 81 Mg) 81 Mg Tabec, 81 MG PO EVERY OTHER DAY, (Reported) Entered as Reported by: MITCH HARRIS on 12/07/12 1501 Diltiazem Hcl (Cardizem Po) 30 Mg Tab, 1 TAB PO QID, (Reported) Entered as Reported by: ELPIDIO MONTGOMERY on 12/20/09 1933 Hydrochlorothiazide (Hydrochlorothiazide) 25 Mg Tablet, 1 EACH PO DAILY, (Reported) Entered as Reported by: MAGDALENA BATISTA on 08/20/12 1136 Multivitamins (Multiple Vitamin) 1 Tab Tablet, 1 TAB PO DAILY, (Reported) Entered as Reported by: MITCH HARRIS on 12/07/12 1501 Omeprazole (Omeprazole) 20 Mg Capsule.dr, 1 CAP PO DAILY, (Reported) Entered as Reported by: MAGDALENA BATISTA on 08/20/12 1136 Pravastatin Sod (Pravachol (Non-Formulary)) 20 Mg Tab, 20 MG PO DAILY, (Reported) Entered as Reported by: MAGDALENA BATISTA on 08/20/12 1136 Review of Systems Review of Systems Constitutional: see HPI EENTM: Nose Congestion Respiratory: Cough, Shortness of Air Cardiovascular: Edema, Palpitations Past Wyumwqd-Lhircr-Kbsyva Hx Patient Social History Tobacco Use?: No Seasonal Allergies Seasonal Allergies: Yes Physical Exam Vital Signs Vital Signs - First Documented 05/26/22 08:50 Temp 36.4 Pulse 70 Resp 17 B/P (MAP) 141/61 (87) O2 Delivery Room Air Capillary Refill : Height, Weight, BMI Height: '" Weight: lbs. oz. kg; BMI Method: General Appearance: No Apparent Distress, WD/WN HEENT: PERRL/EOMI, TMs Normal, Pharyngeal Erythema, Other (nystagmus noted ) Neck: Non Tender, Supple Respiratory: Normal Breath Sounds, No Accessory Muscle Use, No Respiratory Distress; No Crackles, No Rales, No Rhonci Cardiovascular: Regular Rate, Rhythm, No Murmur, Normal Peripheral Pulses Gastrointestinal: Normal Bowel Sounds, Non Tender, Soft Neurologic/Psychiatric: Alert, Normal Mood/Affect Skin: Warm/Dry Progress/Results/Core Measures Results/Orders Lab Results Laboratory Tests Test 05/26/22 09:27 Range/Units White Blood Count 6.5 4.3-11.0 10^3/uL Red Blood Count 4.25 3.80-5.11 10^6/uL Hemoglobin 13.2 11.5-16.0 g/dL Hematocrit 41 35-52 % Mean Corpuscular Volume 95 80-99 fL Mean Corpuscular Hemoglobin 31 25-34 pg Mean Corpuscular Hemoglobin Concent 33 32-36 g/dL Red Cell Distribution Width 12.7 10.0-14.5 % Platelet Count 216 130-400 10^3/uL Mean Platelet Volume 10.6 9.0-12.2 fL Immature Granulocyte % (Auto) 0 % Neutrophils (%) (Auto) 54 42-75 % Lymphocytes (%) (Auto) 37 12-44 % Monocytes (%) (Auto) 8 0-12 % Eosinophils (%) (Auto) 1 0-10 % Basophils (%) (Auto) 0 0-10 % Neutrophils # (Auto) 3.5 1.8-7.8 10^3/uL Lymphocytes # (Auto) 2.4 1.0-4.0 10^3/uL Monocytes # (Auto) 0.5 0.0-1.0 10^3/uL Eosinophils # (Auto) 0.0 0.0-0.3 10^3/uL Basophils # (Auto) 0.0 0.0-0.1 10^3/uL Immature Granulocyte # (Auto) 0.0 0.0-0.1 10^3/uL Sodium Level 142 135-145 MMOL/L Potassium Level 3.4 L 3.6-5.0 MMOL/L Chloride Level 104 98-107 MMOL/L Carbon Dioxide Level 28 21-32 MMOL/L Anion Gap 10 5-14 MMOL/L Blood Urea Nitrogen 14 7-18 MG/DL Creatinine 0.79 0.60-1.30 MG/DL Estimat Glomerular Filtration Rate 77 BUN/Creatinine Ratio 18 Glucose Level 132 H 70-105 MG/DL Calcium Level 9.1 8.5-10.1 MG/DL Corrected Calcium 8.9 8.5-10.1 MG/DL Total Bilirubin 0.5 0.1-1.0 MG/DL Aspartate Amino Transf (AST/SGOT) 24 5-34 U/L Alanine Aminotransferase (ALT/SGPT) 14 0-55 U/L Alkaline Phosphatase 53 40-136 U/L Troponin I < 0.30 <0.30 NG/ML Total Protein 7.0 6.4-8.2 GM/DL Albumin 4.2 3.2-4.5 GM/DL My Orders Orders - ANDREW MILLS MD Ekg Tracing (05/26/22 09:22) Troponin I Jennifer (05/26/22 09:36) Chest 1 View Ap/Pa Only (05/26/22 09:36) Monitor-Rhythm Ecg Trace Only (05/26/22 09:36) Cbc With Automated Diff (05/26/22 09:36) Comprehensive Metabolic Panel (05/26/22 09:36) Ed Iv/Invasive Line Start (05/26/22 09:51) Cbc With Automated Diff (05/26/22 10:29) Troponin I Fs (05/26/22 10:29) Comprehensive Metabolic Panel (05/26/22 10:29) Vital Signs/I&O 05/26/22 08:50 Temp 36.4 Pulse 70 Resp 17 B/P (MAP) 141/61 (87) O2 Delivery Room Air Progress Progress Note : Time: 11:02 Progress Note Labs reviewed EKG chest x-ray reviewed. Chest x-ray with AP. No noted abnormalities. Likely patient has vertigo. Patient states she has had vertigo in the past and has been on medicines for it which did not help and is also done the exercises for. Patient is feeling better. States the longer she sat the better she is felt. Not having the dizziness as much now. She is able to turn her head and move her eyes around without having the dizziness pop up. We will plan to discharge home with PCM follow-up Departure Impression Primary Impression: Vertigo Disposition: 01 HOME, SELF-CARE Condition: Stable Departure-Patient Inst. Decision time for Depature: 11:04 Patient Instructions: Vertigo (a Type of Dizziness), Vertigo ED ANDREW MILLS MD May 26, 2022 09:23
[2022-05-26 09:50] LABS: BASOPHILS % (AUTO) 0 % (0-10); EOSINOPHILS % (AUTO) 1 % (0-10); HEMATOCRIT 41 % (35-52); HEMOGLOBIN 13.2 g/dL (11.5-16.0); LYMPHOCYTES # (AUTO) 2.4 10^3/uL (1.0-4.0); LYMPHOCYTES % (AUTO) 37 % (12-44); MEAN CORPUSCULAR HEMOGLOBIN 31 pg (25-34); MEAN CORPUSCULAR HGB CONC 33 g/dL (32-36); MEAN CORPUSCULAR VOLUME 95 fL (80-99); MEAN PLATELET VOLUME 10.6 fL (9.0-12.2); MONOCYTES # (AUTO) 0.5 10^3/uL (0.0-1.0); MONOCYTES % (AUTO) 8 % (0-12); NEUTROPHILS # (AUTO) 3.5 10^3/uL (1.8-7.8); NEUTROPHILS % (AUTO) 54 % (42-75); PLATELET COUNT 216 10^3/uL (130-400); WHITE BLOOD COUNT 6.5 10^3/uL (4.3-11.0)
--- NOTE | 2022-05-26 09:52 | Diagnostic Imaging Report ---
CLINICAL INDICATION: Patient short of breath, dizziness, chronic A. fib. EXAM: Portable chest x-ray upright view. COMPARISON: Chest x-ray dated 06/07/2018. FINDINGS: Lungs/pleura: Lungs are clear. There is no pneumothorax. There is no pleural effusion. Mediastinum: Unremarkable. Pulmonary vasculature: Unremarkable. Heart: Cardiac silhouette is upper limits of normal for portable projection. Bones/extrathoracic soft tissue: There are hypertrophic spurs involving the thoracic spine. IMPRESSION: 1: There is no radiographic evidence of acute cardiopulmonary process. 2. Cardiac silhouette is upper limits of normal for portable projection. Dictated by: Dictated on workstation # [id number]
[2022-05-26 10:10] LABS: BILIRUBIN,TOTAL 0.5 MG/DL (0.1-1.0); CALCIUM 9.1 MG/DL (8.5-10.1); CREATININE SERUM 0.79 MG/DL (0.60-1.30); POTASSIUM 3.4 MMOL/L (3.6-5.0)
[2022-05-26 10:11] LABS: ALBUMIN 4.2 GM/DL (3.2-4.5)
[2022-05-26 11:10] VITALS: BP 149/88
== END 2022-05-26 11:10 | disposition home or self-care (01) ==
LOC: EDUNIT# 08:47 → ER FS 09:19
DX: R42 Dizziness and giddiness (principal); I48.91 Unspecified atrial fibrillation; I10 Essential (primary) hypertension; Z79.899 Other long term (current) drug therapy
CPT/HCPCS: 36415; 71045; 80053; 84484; 85025; 93005; 93041

== ENCOUNTER 2023-03-23 19:37 | Emergency (ER) | payer MEDICARE ==
[2023-03-23] MEDS ORDERED: dilTIAZem DRIP PRE-MIX 125 ML IV ONE (19:57)
--- NOTE | 2023-03-23 19:59 | ED Cardiac General ---
History of Present Illness General Stated Complaint: RAPID HEART RATE Source: patient History of Present Illness Date Seen by Provider: Mar 23, 2023 Time Seen by Provider: 19:37 Initial Comments 78-year-old male presenting from home by EMS with complaints of fast heart rate and shortness of breath. She states that Dr. Barrios had recently changed her diltiazem from taking it 3 times a day to a single 120 mg extended release in the morning. She had been doing well with that until tonight when around 5:30 PM she had her heart start racing and it has not settled down. She has a history of atrial fibrillation but usually when it flares up it would come back down but then 2 to 3 hours. She denies missing any doses of medicine. She states she has been drinking a lot of water and trying to stay hydrated. She feels like she is getting some swelling in her legs. She denies any chest pain but does feel some shortness of breath. Timing/Duration: 1-3 hours Severity: moderate Activities at Onset: rest Prior CP/Workup: echocardiography NTG SL LIQUID FERTILIZER SERVICER: No ASA po LIQUID FERTILIZER SERVICER: No Associated Systoms: No Chest Pain, No Cough, No Diaphoresis, No Fever/Chills, No Headaches, No Loss of Appetite, No Malaise, No Nausea/Vomiting, No Seizure; Shortness of Air; No Syncope; Weakness Allergies and Home Medications Allergies Coded Allergies: Sulfa(Sulfonamide Antibiotics) (Verified Allergy, Unknown, 02/09/06) Uncoded Allergies: TAPE (Allergy, Unknown, 02/09/06) Patient Home Medication List Home Medication List Reviewed: Yes Aspirin (Aspirin Ec 81 Mg) 81 Mg Tabec, 81 MG PO EVERY OTHER DAY, (Reported) Entered as Reported by: MITCH HARRIS on 12/07/12 1501 Diltiazem HCl (Diltiazem 24Hr ER) 180 Mg Cap.er.24h, 180 MG PO DAILY Prescribed by: KASHIF TORRE on 03/23/23 211 Diltiazem Hcl (Cardizem Po) 30 Mg Tab, 1 TAB PO QID, (Reported) Entered as Reported by: ELPIDIO MONTGOMERY on 12/20/09 1933 Hydrochlorothiazide (Hydrochlorothiazide) 25 Mg Tablet, 1 EACH PO DAILY, (Reported) Entered as Reported by: MAGDALENA BATISTA on 08/20/12 1136 Multivitamins (Multiple Vitamin) 1 Tab Tablet, 1 TAB PO DAILY, (Reported) Entered as Reported by: MITCH HARRIS on 12/07/12 1501 Omeprazole (Omeprazole) 20 Mg Capsule.dr, 1 CAP PO DAILY, (Reported) Entered as Reported by: MAGDALENA BATISTA on 08/20/12 1136 Potassium Chloride (K-Tab ER) 20 Meq Tablet.er, 20 MEQ PO DAILY Prescribed by: KASHIF TORRE on 03/23/23 2111 Pravastatin Sod (Pravachol (Non-Formulary)) 20 Mg Tab, 20 MG PO DAILY, (Reported) Entered as Reported by: MAGDALENA BATISTA on 08/20/12 1136 Review of Systems Review of Systems Constitutional: No chills, No fever EENTM: No Symptoms Reported Respiratory: See HPI Cardiovascular: Denies Chest Pain; Palpitations Gastrointestinal: Denies Nausea, Denies Vomiting Genitourinary: No Symptoms Reported Musculoskeletal: no symptoms reported Skin: no symptoms reported Psychiatric/Neurological: Anxiety Hematologic/Lymphatic: Easy Bleeding (takes blood thinner), Easy Bruising (takes blood thinner) Past Kzqydjs-Phbqal-Jrwzxe Hx Patient Social History Tobacco Use?: No Immunizations Up To Date Tetanus Booster (TDap): Unknown Seasonal Allergies Seasonal Allergies: Yes Past Medical History Surgery/Hospitalization HX: Atrial Fibrillation Surgeries: Yes (ABD EXPLORE) Orthopedic Respiratory: No Cardiac: Yes Atrial Fibrillation, High Cholesterol, Hypertension Neurological: No Reproductive Disorders: No Genitourinary: No Gastrointestinal: Yes Gastroesophageal Reflux, Gall Bladder Disease Musculoskeletal: Yes (DJD) Arthritis Endocrine: No HEENT: No Cancer: No Psychosocial: No Integumentary: No Blood Disorders: No Family Medical History No Pertinent Family Hx Physical Exam Vital Signs Vital Signs - First Documented 03/23/23 19:38 Pulse 160 Resp 16 B/P (MAP) 194/94 (127) Pulse Ox 99 O2 Delivery Room Air Capillary Refill : Height, Weight, BMI Height: 5'1.00" Weight: 192lbs. 0.0oz. 87.585310kp; 36.00 BMI Method:Stated General Appearance: Anxious, Obese HEENT: PERRL/EOMI, Pharynx Normal Neck: Full Range of Motion, Normal Inspection, Non Tender, Supple Respiratory: Chest Non Tender, Lungs Clear, Normal Breath Sounds, No Accessory Muscle Use, No Respiratory Distress Cardiovascular: Normal Peripheral Pulses, Irregularly Irregular, Tachycardia Gastrointestinal: Normal Bowel Sounds, No Pulsatile Mass, Non Tender, Soft Rectal: Deferred Extremity: Normal Capillary Refill, Pedal Edema (1+ BLE edema) Neurologic/Psychiatric: Alert, Oriented x3, cryogenic transport driver II-XII Norm as Tested, Other (anxious and upset that she had been stuck x 2 with EMS for IV access and insists that we only get 1 more chance to obtain IV and then she will refuse to be stuck any more. She is anxious and almost ready to cry when she keeps saying over and over that we can only stick her 1 time because she can not handle any more IV start attempts.) Skin: Normal Color, Warm/Dry Progress/Results/Core Measures Results/Orders Lab Results Laboratory Tests Test 03/23/23 19:45 03/23/23 19:55 03/23/23 20:08 Range/Units Urine Color PALE YELLOW Urine Clarity CLEAR Urine pH 7.5 5-9 Urine Specific [place] 1.010 L 1.016-1.022 Urine Protein NEGATIVE NEGATIVE Urine Glucose (UA) NEGATIVE NEGATIVE Urine Ketones NEGATIVE NEGATIVE Urine Nitrite NEGATIVE NEGATIVE Urine Bilirubin NEGATIVE NEGATIVE Urine Urobilinogen 0.2 < = 1.0 MG/DL Urine Leukocyte Esterase NEGATIVE NEGATIVE Urine RBC (Auto) NEGATIVE NEGATIVE Urine RBC RARE /HPF Urine WBC 0-2 /HPF Urine Squamous Epithelial Cells NONE /HPF Urine Crystals NONE /LPF Urine Bacteria NEGATIVE /HPF Urine Casts NONE /LPF Urine Mucus NEGATIVE /LPF Urine Culture Indicated NO White Blood Count 8.9 4.3-11.0 10^3/uL Red Blood Count 4.46 3.80-5.11 10^6/uL Hemoglobin 14.4 11.5-16.0 g/dL Hematocrit 43 35-52 % Mean Corpuscular Volume 97 80-99 fL Mean Corpuscular Hemoglobin 32 25-34 pg Mean Corpuscular Hemoglobin Concent 33 32-36 g/dL Red Cell Distribution Width 12.2 10.0-14.5 % Platelet Count 210 130-400 10^3/uL Mean Platelet Volume 10.3 9.0-12.2 fL Immature Granulocyte % (Auto) 0 % Neutrophils (%) (Auto) 35 L 42-75 % Lymphocytes (%) (Auto) 52 H 12-44 % Monocytes (%) (Auto) 11 0-12 % Eosinophils (%) (Auto) 1 0-10 % Basophils (%) (Auto) 0 0-10 % Neutrophils # (Auto) 3.1 1.8-7.8 10^3/uL Lymphocytes # (Auto) 4.6 H 1.0-4.0 10^3/uL Monocytes # (Auto) 1.0 0.0-1.0 10^3/uL Eosinophils # (Auto) 0.1 0.0-0.3 10^3/uL Basophils # (Auto) 0.0 0.0-0.1 10^3/uL Immature Granulocyte # (Auto) 0.0 0.0-0.1 10^3/uL Prothrombin Time 14.8 H 12.2-14.7 SEC INR Comment 1.1 0.8-1.4 Activated Partial Thromboplast Time 38 H 24-35 SEC Sodium Level 143 135-145 MMOL/L Potassium Level 3.2 L 3.6-5.0 MMOL/L Chloride Level 103 98-107 MMOL/L Carbon Dioxide Level 27 21-32 MMOL/L Anion Gap 13 5-14 MMOL/L Blood Urea Nitrogen 15 7-18 MG/DL Creatinine 0.70 0.60-1.30 MG/DL Estimat Glomerular Filtration Rate 88 BUN/Creatinine Ratio 21 Glucose Level 131 H 70-105 MG/DL Calcium Level 10.2 H 8.5-10.1 MG/DL Corrected Calcium 9.9 8.5-10.1 MG/DL Magnesium Level 1.9 1.6-2.4 MG/DL Total Bilirubin 0.4 0.1-1.0 MG/DL Aspartate Amino Transf (AST/SGOT) 29 5-34 U/L Alanine Aminotransferase (ALT/SGPT) 16 0-55 U/L Alkaline Phosphatase 60 40-136 U/L Troponin I < 0.30 <0.30 NG/ML Pro-B-Type Natriuretic Peptide 402.9 <450.0 PG/ML Total Protein 7.4 6.4-8.2 GM/DL Albumin 4.4 3.2-4.5 GM/DL My Orders Orders - ENKASHIF SEVILLA MD Cbc With Automated Diff (03/23/23 19:52) Magnesium (03/23/23 19:52) Chest 1 View Ap/Pa Only (03/23/23 19:52) Ekg Tracing (03/23/23 19:52) Comprehensive Metabolic Panel (03/23/23 19:52) Protime With Inr (03/23/23 19:52) Partial Thromboplastin Time (03/23/23 19:52) O2 (03/23/23 19:52) Monitor-Rhythm Ecg Trace Only (03/23/23 19:52) Ed Iv/Invasive Line Start (03/23/23 19:52) Troponin I Fs (03/23/23 19:52) Probnp Fs (03/23/23 19:52) Diltiazem Injection (Cardizem Injection) (03/23/23 19:52) Ns (Ivpb) (Sodium C... W/Diltiazem Iv Fo (03/23/23 19:52) Diltiazem Drip Pre-Mix (Cardizem Drip Pr (03/23/23 19:57) Ua Culture If Indicated (03/23/23 20:04) Ekg Tracing (03/23/23 20:56) Potassium Chloride (Tablet) (K Dur Table (03/23/23 21:13) Diltiazem Cd 24 Hr Capsule (Cardizem Cd (03/23/23 21:13) Vital Signs/I&O 03/23/23 03/23/23 03/23/23 19:38 19:59 20:00 Pulse 160 140 140 Resp 16 B/P (MAP) 194/94 (127) 194/94 194/94 Pulse Ox 99 O2 Delivery Room Air Progress Progress Note #1: Progress Note Potential diagnosis of atrial fibrillation with rapid ventricular response, electrolyte imbalance, acute myocardial infarction, pneumonia, and adequate dose of medication. Obtain peripheral IV access and send labs for complete blood count, comprehensive metabolic profile, coagulation factors, troponin, proBNP, magnesium. Urinalysis to look for UTI. Chest xray to look for infiltrate, effusion, mass. ECG to look at her rate and rhythm. Cardiac shelter monitor for watching her rate and rhythm. My initial interpretation of her cardiac tele metry monitor shows atrial fibrillation with RVR and heart rate in the 140s. Her initial blood pressure was 194/94. She was satting 99% on room air. She denied having any chest pains just had palpitations with shortness of breath. The shortness of breath was not preventing her from talking nonstop with staff and her friend when they came to the room. Progress Note #2: Time: 20:12 Progress Note Her electrocardiogram shows atrial fibrillation with rapid ventricular response and heart rate of 149 bpm. This is a change from her previous tracing done May 26, 2022 where she was a sinus rhythm. Her 1 view chest x-ray in my interpretation shows no acute infiltrate or effusion. Overall appears similar to prior imaging. Complete blood count shows white blood cell count of 8.9 and is not showing anemia as her hemoglobin is at 14.4. She does have increased lymphocytes on her differential. Progress Note #3: Time: 20:57 Progress Note Complete blood count does not show any acute significant abnormality. Her comprehensive metabolic panel does show mild hypokalemia at 3.2. Otherwise there is no acute significant abnormality on her electrolytes. Her troponin was less than 0.3 and her proBNP was not elevated at 402.9. Her urinalysis did not show infection and she has specific gravity of 1.010. The radiologist did not see any acute infiltrate or effusion on her chest x-ray. Patient had been increased to 7.5 on her diltiazem drip and she appears to have converted back to a sinus rhythm with a heart rate in the 60s. Her blood pressure is 116/84. Oxygen continues to be 98 to 100% on room air. Breathing 15-18 times a minute. We will repeat an electrocardiogram to verify her rhythm change. We will check in with cardiology to see if they wanted to adjust any medication dosing or if she would have to be admitted or have anything further done. Progress Note #4: Time: 21:02 Progress Note Page placed for Dr. Henderson the on-call forensic structural engineer at 2103 Dr. Henderson called back and I have reviewed the patient's presentation and recent history with him. Labs had all looked good other than mild hypokalemia at 3.2. With her recent change to the 120 mg extended release on her diltiazem he recommended giving an additional dose of diltiazem here in the ED by mouth and supplementing her potassium. He would like her to be on the 180 mg a day extended release for her diltiazem and requested that she at least have a 10-day supply. Have her check back with Dr. Barrios next week within the next 7 to 10 days about her atrial fibrillation and diltiazem dosing. Return if having worsening problems. The hypokalemia may have been what triggered her to go into the atrial fibrillation with RVR tonight. The increased dose of diltiazem should help to prevent her from going back into atrial fibrillation until she can follow-up with Dr. Barrios. 2114 ordered 40 mEq of p.o. potassium and diltiazem 120 mg extended release pill. Will discontinue the IV diltiazem drip and discharged home. Follow directions from Dr. HENDERSON as above. Initial ECG Impression Date: Mar 23, 2023 Initial ECG Impression Time: 19:47 Initial ECG Rate: 149 Initial ECG Rhythm: A Fib/Flutter Initial ECG Comparisson: Changed (05/26/2022 was sinus rhythm) Comment Based on my personal interpretation and review her electrocardiogram shows atrial fibrillation with rapid ventricular response and a rate of 149 bpm. She does not have any ST elevation. Her QT interval is 281 ms with a QTc interval 366 ms. Compared to her prior tracing on May 26, 2022 she was a sinus rhythm at that time. EKG : EKG Time: 21:02 Rate: 62 Rhythm: Normal Sinus ECG Comparisson: Changed (Converted to sinus rhythm from atrial fibrillation with RVR on tracing from 1946 tonight) Comment My personal interpretation and review her electrocardiogram from 2101 on 23 March 2023 shows a sinus rhythm with a heart rate of 62 bpm. DC interval [address] elevation. QT interval 388 ms with a QTc interval 393 ms overall this is an improvement from her initial tracing at 0 7 PM tonight. This tracing appears more similar to the sinus rhythm seen on May 26, 2022 EKG. Diagnostic Imaging Diagonstic Imaging: Xray Plain Films/CT/US/NM/MRI: chest Comments [facility] [place], [place] NAME: FRIDA ALMAGUER [facility] REC#: [id number] PT STATUS: REG ER : 1945 PHYSICIAN: KASHIF TORRE MD ADMIT DATE: 03/23/23/ER FS Draft Date of Exam:03/23/23 CHEST 1 VIEW AP/PA ONLY INDICATION: fast heart rate, short of breath COMPARISON: 05/26/2022 FINDINGS: Single frontal view of the chest demonstrates normal heart size and pulmonary vascularity. The lungs are well aerated and clear. No large pleural effusion or pneumothorax is seen. The visualized osseous structures show no acute abnormalities. IMPRESSION: 1. No acute cardiopulmonary process. Dictated on workstation # [id number] Dict: 03/23/232019 Trans: 03/23/232020 [id number] Interpreted by: NII KYLE MD Electronically signed by: Reviewed: Reviewed by Me (I reviewed radiologist report at 2056) Departure Impression Primary Impression: Atrial fibrillation with RVR Additional Impression: Hypokalemia Disposition: HOME, SELF-CARE Condition: Improved Departure-Patient Inst. Decision time for Depature: 21:42 Referrals: ABDIEL POLO DO (PCP/Family) Primary Care Physician GAURI BARRIOS MD Patient Instructions: Atrial Fibrillation and Atrial Flutter ED, High Potassium Diet, Hypokalemia (DC) Add. Discharge Instructions: Change from the 120 mg extended release diltiazem that you recently started and take 180 mg extended release diltiazem once a day. Try to increase the potassium in your diet and take a potassium supplement for the next 5 days. Call in the morning to arrange follow-up with Dr. Barrios within the next 7 to 10 days so he can review your medications and see if he needs to keep the diltiazem at the higher dose or not. If having recurrent symptoms or new problems certainly be seen sooner otherwise follow-up with Dr. Barrios through the clinic. Scripts Potassium Chloride (K-Tab ER) 20 Meq Tablet.er 20 MEQ PO DAILY for Hypokalemia for 5 Days, #5 TAB 0 Refills Prov: KASHIF TORRE MD 03/23/23 Diltiazem HCl (Diltiazem 24Hr ER) 180 Mg Cap.er.24h 180 MG PO DAILY for Atrial Fibrillation for 10 Days, #10 CAP 0 Refills Prov: KASHIF TORRE MD 03/23/23 KASHIF TORRE MD Mar 23, 2023 19:59
[2023-03-23 20:01] LABS: BASOPHILS % (AUTO) 0 % (0-10); EOSINOPHILS # (AUTO) 0.1 10^3/uL (0.0-0.3); EOSINOPHILS % (AUTO) 1 % (0-10); HEMATOCRIT 43 % (35-52); HEMOGLOBIN 14.4 g/dL (11.5-16.0); LYMPHOCYTES # (AUTO) 4.6 10^3/uL (1.0-4.0); LYMPHOCYTES % (AUTO) 52 % (12-44); MEAN CORPUSCULAR HEMOGLOBIN 32 pg (25-34); MEAN CORPUSCULAR HGB CONC 33 g/dL (32-36); MEAN CORPUSCULAR VOLUME 97 fL (80-99); MEAN PLATELET VOLUME 10.3 fL (9.0-12.2); MONOCYTES % (AUTO) 11 % (0-12); NEUTROPHILS # (AUTO) 3.1 10^3/uL (1.8-7.8); NEUTROPHILS % (AUTO) 35 % (42-75); PLATELET COUNT 210 10^3/uL (130-400); WHITE BLOOD COUNT 8.9 10^3/uL (4.3-11.0)
[2023-03-23 20:11] LABS: BILIRUBIN,URINE NEGATIVE (NEGATIVE); CLARITY,URINE CLEAR; GLUCOSE, URINE (UA) NEGATIVE (NEGATIVE); KETONES,URINE NEGATIVE (NEGATIVE); LEUKOCYTE ESTERASE ,URINE NEGATIVE (NEGATIVE); NITRITE,URINE NEGATIVE (NEGATIVE); PH,URINE 7.5 (5-9); PROTEIN,URINE NEGATIVE (NEGATIVE)
[2023-03-23 20:16] LABS: BACTERIA,URINE NEGATIVE /HPF; COLOR,URINE PALE YELLOW; RBC,URINE RARE /HPF; WBC,URINE 0-2 /HPF
--- NOTE | 2023-03-23 20:22 | Diagnostic Imaging Report ---
INDICATION: fast heart rate, short of breath COMPARISON: 05/26/2022 FINDINGS: Single frontal view of the chest demonstrates normal heart size and pulmonary vascularity. The lungs are well aerated and clear. No large pleural effusion or pneumothorax is seen. The visualized osseous structures show no acute abnormalities. IMPRESSION: 1. No acute cardiopulmonary process. Dictated by: Dictated on workstation # [id number]
[2023-03-23 20:31] LABS: INR 1.1 (0.8-1.4); PROTHROMBIN TIME PATIENT 14.8 SEC (12.2-14.7)
[2023-03-23 20:49] LABS: ALBUMIN 4.4 GM/DL (3.2-4.5); BILIRUBIN,TOTAL 0.4 MG/DL (0.1-1.0); CALCIUM 10.2 MG/DL (8.5-10.1); CREATININE SERUM 0.7 MG/DL (0.60-1.30); MAGNESIUM 1.9 MG/DL (1.6-2.4); POTASSIUM 3.2 MMOL/L (3.6-5.0); TOTAL PROTEIN 7.4 GM/DL (6.4-8.2)
[2023-03-23] MEDS ORDERED: POTA-53 PO (21:11)
[2023-03-23] MEDS ORDERED: DILT180C85 PO (21:11)
[2023-03-23] MEDS ORDERED: KCL 20 MEQ TAB (K-DUR) PO STA (21:13)
[2023-03-23] MEDS ORDERED: dilTIAZem120 MG (CARDIZEM CD) CAP PO STA (21:13)
[2023-03-23 21:46] VITALS: BP 149/68
== END 2023-03-23 21:47 | disposition home or self-care (01) ==
LOC: EDUNIT# 19:37 → ER FS 19:38
DX: I48.91 Unspecified atrial fibrillation (principal); E87.6 Hypokalemia; I10 Essential (primary) hypertension; F41.9 Anxiety disorder, unspecified; E66.9 Obesity, unspecified; Z79.01 Long term (current) use of anticoagulants; Z79.899 Other long term (current) drug therapy; Z68.36 Body mass index [BMI] 36.0-36.9, adult; Z28.310 Unvaccinated for COVID-19
CPT/HCPCS: 36415; 71045; 80053; 81000; 83735; 83880; 84484; 85025; 85610; 85730; 93005; 93041

== ENCOUNTER 2023-05-09 11:07 | Emergency (ER) | payer MEDICARE ==
[~2023-05-09] VITALS: Ht 157.5 cm; Wt 90.7 kg
[~2023-05-09 11:07] MED LIST changes: +DILT180C85 PO; +POTA-53 PO
--- NOTE | 2023-05-09 11:28 | ED Cardiac General ---
History of Present Illness General Chief Complaint: Cardiac/General Problems Stated Complaint: A-FIB Source: patient Exam Limitations: no limitations History of Present Illness Date Seen by Provider: May 09, 2023 Time Seen by Provider: 11:09 Initial Comments 78-year-old female with past medical history of A-fib on Xarelto coming in due to palpitations feeling she was in A-fib earlier in the middle of the night. When this was occurring, she felt like her "forehead was fuzzy". She took her diltiazem this morning, felt like her A-fib stopped, and now her vision is normal. Denies any weakness, numbness, headache, chest pain, shortness of breath, abdominal pain, or any other concerns. Allergies and Home Medications Allergies Coded Allergies: Sulfa(Sulfonamide Antibiotics) (Verified Allergy, Unknown, 02/09/06) Uncoded Allergies: TAPE (Allergy, Unknown, 02/09/06) Patient Home Medication List Home Medication List Reviewed: Yes Aspirin (Aspirin Ec 81 Mg) 81 Mg Tabec, 81 MG PO EVERY OTHER DAY, (Reported) Entered as Reported by: MITCH HARRIS on 12/07/12 1501 Diltiazem HCl (Diltiazem 24Hr ER) 180 Mg Cap.er.24h, 180 MG PO DAILY Prescribed by: KASHIF TORRE on 03/23/232110 Diltiazem Hcl (Cardizem Po) 30 Mg Tab, 1 TAB PO QID, (Reported) Entered as Reported by: ELPIDIO MONTGOMERY on 12/20/09 1933 Hydrochlorothiazide (Hydrochlorothiazide) 25 Mg Tablet, 1 EACH PO DAILY, (Reported) Entered as Reported by: MAGDALENA BATISTA on 08/20/12 1136 Multivitamins (Multiple Vitamin) 1 Tab Tablet, 1 TAB PO DAILY, (Reported) Entered as Reported by: MITCH HARRIS on 12/07/12 1501 Omeprazole (Omeprazole) 20 Mg Capsule.dr, 1 CAP PO DAILY, (Reported) Entered as Reported by: MAGDALENA BATISTA on 08/20/12 1136 Potassium Chloride (K-Tab ER) 20 Meq Tablet.er, 20 MEQ PO DAILY Prescribed by: KASHIF TORRE on 03/23/232110 Pravastatin Sod (Pravachol (Non-Formulary)) 20 Mg Tab, 20 MG PO DAILY, (Reported) Entered as Reported by: MAGDALENA BATISTA on 08/20/12 1136 Review of Systems Review of Systems Constitutional: No fever EENTM: See HPI Respiratory: No Symptoms Reported Cardiovascular: See HPI Gastrointestinal: No Symptoms Reported Genitourinary: No Symptoms Reported Musculoskeletal: no symptoms reported Skin: no symptoms reported Psychiatric/Neurological: No Symptoms Reported Endocrine: No Symptoms Reported Hematologic/Lymphatic: No Symptoms Reported Past Bgwgkus-Voylkn-Gsovrw Hx Patient Social History Tobacco Use?: No Immunizations Up To Date Tetanus Booster (TDap): Unknown Seasonal Allergies Seasonal Allergies: Yes Past Medical History Surgery/Hospitalization HX: Atrial Fibrillation Surgeries: Yes (ABD EXPLORE) Orthopedic Respiratory: No Cardiac: Yes Atrial Fibrillation, High Cholesterol, Hypertension Neurological: No Reproductive Disorders: No Genitourinary: No Gastrointestinal: Yes Gastroesophageal Reflux, Gall Bladder Disease Musculoskeletal: Yes (DJD) Arthritis Endocrine: No HEENT: No Cancer: No Psychosocial: No Integumentary: No Blood Disorders: No Family Medical History No Pertinent Family Hx Physical Exam Vital Signs Capillary Refill : Height, Weight, BMI Height: 5'1.00" Weight: 192lbs. 0.0oz. 87.640254qx; 36.00 BMI Method:Stated General Appearance: No Apparent Distress, WD/WN HEENT: PERRL/EOMI, Normal ENT Inspection, Pharynx Normal Neck: Full Range of Motion, Normal Inspection, Non Tender, Supple Respiratory: Chest Non Tender, Lungs Clear, Normal Breath Sounds, No Accessory Muscle Use, No Respiratory Distress Cardiovascular: Regular Rate, Rhythm, Normal Peripheral Pulses Gastrointestinal: Normal Bowel Sounds, Non Tender, Soft; No Distended, No Guarding Extremity: Normal Capillary Refill, Normal Inspection, Normal Range of Motion, Non Tender, No Calf Tenderness Neurologic/Psychiatric: Alert, Oriented x3, No Motor/Sensory Deficits, Normal Mood/Affect, associate designer II-XII Norm as Tested, Other (Normal visual lira and visual acuity, normal gait, normal [id number]) Skin: Normal Color, Warm/Dry Progress/Results/Core Measures Results/Orders Lab Results Laboratory Tests Test 05/09/23 11:35 Range/Units White Blood Count 6.8 4.3-11.0 10^3/uL Red Blood Count 4.50 3.80-5.11 10^6/uL Hemoglobin 14.3 11.5-16.0 g/dL Hematocrit 44 35-52 % Mean Corpuscular Volume 97 80-99 fL Mean Corpuscular Hemoglobin 32 25-34 pg Mean Corpuscular Hemoglobin Concent 33 32-36 g/dL Red Cell Distribution Width 12.2 10.0-14.5 % Platelet Count 212 130-400 10^3/uL Mean Platelet Volume 10.2 9.0-12.2 fL Immature Granulocyte % (Auto) 0 % Neutrophils (%) (Auto) 54 42-75 % Lymphocytes (%) (Auto) 34 12-44 % Monocytes (%) (Auto) 11 0-12 % Eosinophils (%) (Auto) 1 0-10 % Basophils (%) (Auto) 0 0-10 % Neutrophils # (Auto) 3.7 1.8-7.8 10^3/uL Lymphocytes # (Auto) 2.3 1.0-4.0 10^3/uL Monocytes # (Auto) 0.7 0.0-1.0 10^3/uL Eosinophils # (Auto) 0.1 0.0-0.3 10^3/uL Basophils # (Auto) 0.0 0.0-0.1 10^3/uL Immature Granulocyte # (Auto) 0.0 0.0-0.1 10^3/uL Prothrombin Time 15.9 H 12.2-14.7 SEC INR Comment 1.2 0.8-1.4 Activated Partial Thromboplast Time 36 H 24-35 SEC Sodium Level 143 135-145 MMOL/L Potassium Level 3.8 3.6-5.0 MMOL/L Chloride Level 103 98-107 MMOL/L Carbon Dioxide Level 26 21-32 MMOL/L Anion Gap 14 5-14 MMOL/L Blood Urea Nitrogen 17 7-18 MG/DL Creatinine 0.81 0.60-1.30 MG/DL Estimat Glomerular Filtration Rate 74 BUN/Creatinine Ratio 21 Glucose Level 108 H 70-105 MG/DL Calcium Level 9.7 8.5-10.1 MG/DL Corrected Calcium 9.3 8.5-10.1 MG/DL Magnesium Level 2.0 1.6-2.4 MG/DL Total Bilirubin 0.5 0.1-1.0 MG/DL Aspartate Amino Transf (AST/SGOT) 29 5-34 U/L Alanine Aminotransferase (ALT/SGPT) 16 0-55 U/L Alkaline Phosphatase 64 40-136 U/L Troponin I < 0.30 <0.30 NG/ML Total Protein 7.6 6.4-8.2 GM/DL Albumin 4.5 3.2-4.5 GM/DL My Orders Orders - SHIRIN MORAES MD Cbc With Automated Diff (05/09/23:) Magnesium (05/09/23:) Chest 1 View Ap/Pa Only (05/09/23) Ekg Tracing (05/09/23) Comprehensive Metabolic Panel (05/09/23) Protime With Inr (05/09/23) Partial Thromboplastin Time (05/09/23) O2 (05/09/23) Monitor-Rhythm Ecg Trace Only (05/09/23) Ed Iv/Invasive Line Start (05/09/23:) Troponin I Fs (05/09/23) Progress Progress Note : Progress Note 78-year-old female with above history coming in due to feeling like she was in A-fib earlier, during that time having "fuzziness in the top of her forehead". She states she feels back to normal now after taking her diltiazem. She has not missed any doses of her Xarelto. EKG with sinus bradycardia here with normal blood pressure. She is asymptomatic here and comprehensive neuro exam is completely normal with an NIH of 0. No clinical signs of stroke. An IV was placed and basic labs were obtained and were significant for a normal hemoglobin, normal creatinine, negative troponin. No clinical signs of ACS. PE very unlikely given she has not missed any doses of Xarelto and does not have any signs or symptoms of a DVT. Chest x-ray ordered and interpreted by me showing no obvious pneumonia or pneumothorax. Patient continues to be at her baseline and I believe is stable for discharge with outpatient follow-up. She was sent home with strict return precautions. Initial ECG Impression Date: May 09, 2023 Initial ECG Impression Time: 11:22 Initial ECG Rate: 51 Initial ECG Rhythm: S.Adama Comment Narrow QRS, normal axis, no significant ST changes or T wave abnormalities Diagnostic Imaging Diagonstic Imaging: Xray (chest) Comments [facility] [place], [place] NAME: FRIDA ALMAGUER [facility] REC#: [id number] PT STATUS: REG ER : 1945 PHYSICIAN: SHIRIN MORAES MD ADMIT DATE: 05/09/23/ER FS Signed Date of Exam:05/09/23 CHEST 1 VIEW AP/PA ONLY INDICATION: Palpitations. Study compared 03/23/2023. FINDINGS: Lungs clear. No failure, effusion or pneumothorax. IMPRESSION: No acute appearing abnormality. Dictated by: Dictated on workstation # [id number] Dict: 05/09/23 1140 Trans: 05/09/23 1148 [id number] Interpreted by: ANA MOSES Electronically signed by: ANA MOSES 05/09/23 1148 Departure Impression Primary Impression: Paroxysmal A-fib Disposition: 01 HOME, SELF-CARE Condition: Improved Departure-Patient Inst. Decision time for Depature: 12:10 Referrals: ABDIEL POLO DO (PCP/Family) Primary Care Physician Patient Instructions: Atrial Fibrillation and Atrial Flutter ED Add. Discharge Instructions: The symptoms you are experiencing this morning were likely due to being in A-fib causing less blood flow to go to your brain and eyes which can cause the symptoms you are experiencing. Please follow-up with your ladies' hat trimmer in regards to this. Your heart rate was a little bit lower in the ER, sometimes this is from the diltiazem. They may want to change the dose of this when you discuss that with them. If you have any severe chest pain, severe shortness of breath, weakness where you cannot move 1 side of your body, numbness or you cannot feel 1 side of your body that is new then we would want you to come back to the ER. SHIRIN MORAES MD May 09, 2023 11:28
[2023-05-09 11:40] LABS: BASOPHILS % (AUTO) 0 % (0-10); EOSINOPHILS # (AUTO) 0.1 10^3/uL (0.0-0.3); EOSINOPHILS % (AUTO) 1 % (0-10); HEMATOCRIT 44 % (35-52); HEMOGLOBIN 14.3 g/dL (11.5-16.0); LYMPHOCYTES # (AUTO) 2.3 10^3/uL (1.0-4.0); LYMPHOCYTES % (AUTO) 34 % (12-44); MEAN CORPUSCULAR HEMOGLOBIN 32 pg (25-34); MEAN CORPUSCULAR HGB CONC 33 g/dL (32-36); MEAN CORPUSCULAR VOLUME 97 fL (80-99); MEAN PLATELET VOLUME 10.2 fL (9.0-12.2); MONOCYTES # (AUTO) 0.7 10^3/uL (0.0-1.0); MONOCYTES % (AUTO) 11 % (0-12); NEUTROPHILS # (AUTO) 3.7 10^3/uL (1.8-7.8); NEUTROPHILS % (AUTO) 54 % (42-75); PLATELET COUNT 212 10^3/uL (130-400); WHITE BLOOD COUNT 6.8 10^3/uL (4.3-11.0)
[2023-05-09 11:49] LABS: INR 1.2 (0.8-1.4); PROTHROMBIN TIME PATIENT 15.9 SEC (12.2-14.7)
--- NOTE | 2023-05-09 11:54 | Diagnostic Imaging Report ---
INDICATION: Palpitations. Study compared 03/23/2023. FINDINGS: Lungs clear. No failure, effusion or pneumothorax. IMPRESSION: No acute appearing abnormality. Dictated by: Dictated on workstation # [id number]
[2023-05-09 11:58] LABS: ALANINE AMINOTRANSFERASE 16 U/L (0-55); ALBUMIN 4.5 GM/DL (3.2-4.5); ALKALINE PHOSPHATASE 64 U/L (40-136); BILIRUBIN,TOTAL 0.5 MG/DL (0.1-1.0); BUN/CREATININE RATIO 21; CALCIUM 9.7 MG/DL (8.5-10.1); CARBON DIOXIDE 26 MMOL/L (21-32); CHLORIDE 103 MMOL/L (98-107); CREATININE SERUM 0.81 MG/DL (0.60-1.30); GFR ESTIMATED 74; GLUCOSE 108 MG/DL (70-105); POTASSIUM 3.8 MMOL/L (3.6-5.0); SODIUM 143 MMOL/L (135-145); TOTAL PROTEIN 7.6 GM/DL (6.4-8.2)
[2023-05-09 12:30] VITALS: BP 121/68
== END 2023-05-09 12:30 | disposition home or self-care (01) ==
LOC: EDUNIT# 11:07 → ER FS 11:08
DX: I48.0 Paroxysmal atrial fibrillation (principal); R00.1 Bradycardia, unspecified; Z79.01 Long term (current) use of anticoagulants
CPT/HCPCS: 36415; 71045; 80053; 83735; 84484; 85025; 85610; 85730; 93005; 93041

== ENCOUNTER 2023-05-19 22:59 | Emergency (ER) | payer MEDICARE ==
[~2023-05-19] VITALS: Ht 157.4 cm; Wt 90.7 kg
[2023-05-19 23:01] VITALS: BP 175/97
--- NOTE | 2023-05-19 23:07 | ED Lower Extremity ---
General Stated Complaint: FALL Source: patient History of Present Illness Date Seen by Provider: May 19, 2023 Time Seen by Provider: 23:00 Initial Comments 78-year-old female presenting with complaints of severe pain to the left knee. She states that she got up out of her chair and went to turn to shut off the lights to go to bed and as she turned her body she did not turn her left foot so the leg stayed in place. She said she felt something pop and had immediate pain. She has had limited weightbearing since then because of the pain. First responders had evaluated her and they helped her get into the vehicle so she could be driven to the emergency department. She was complaining of pain 9 out of 10 but has not taken anything for pain. She denies any numbness or tingling. She has increased pain with flexion and extension of the left knee. Onset: just prior to arrival, this evening Severity: severe Pain/Injury Location: left knee Method of Injury: twisted Modifying Factors: Worse With Movement Allergies and Home Medications Allergies Coded Allergies: Sulfa(Sulfonamide Antibiotics) (Verified Allergy, Unknown, 02/09/06) Uncoded Allergies: TAPE (Allergy, Unknown, 02/09/06) Patient Home Medication List Home Medication List Reviewed: Yes Aspirin (Aspirin Ec 81 Mg) 81 Mg Tabec, 81 MG PO EVERY OTHER DAY, (Reported) Entered as Reported by: MITCH HARRIS on 12/07/12 1501 Diltiazem HCl (Diltiazem 24Hr ER) 180 Mg Cap.er.24h, 180 MG PO DAILY Prescribed by: KASHIF TORRE on 03/23/232110 Diltiazem Hcl (Cardizem Po) 30 Mg Tab, 1 TAB PO QID, (Reported) Entered as Reported by: ELPIDIO MONTGOMERY on 12/20/09 193 Hydrochlorothiazide (Hydrochlorothiazide) 25 Mg Tablet, 1 EACH PO DAILY, (Reported) Entered as Reported by: MAGDALENA BATISTA on 08/20/12 1136 Multivitamins (Multiple Vitamin) 1 Tab Tablet, 1 TAB PO DAILY, (Reported) Entered as Reported by: MITCH HARRIS on 12/07/12 1501 Omeprazole (Omeprazole) 20 Mg Capsule.dr, 1 CAP PO DAILY, (Reported) Entered as Reported by: MAGDALENA BATISTA on 08/20/12 1136 Potassium Chloride (K-Tab ER) 20 Meq Tablet.er, 20 MEQ PO DAILY Prescribed by: KASHIF TORRE on 03/23/232110 Pravastatin Sod (Pravachol (Non-Formulary)) 20 Mg Tab, 20 MG PO DAILY, (Reported) Entered as Reported by: MAGDALENA BATISTA on 08/20/12 1136 Review of Systems Constitutional: No chills, No fever EENTM: no symptoms reported Respiratory: no symptoms reported Cardiovascular: no symptoms reported Gastrointestinal: no symptoms reported Genitourinary: no symptoms reported Musculoskeletal: see HPI Skin: No change in color Psychiatric/Neurological: See HPI; Denies Numbness Past Xujbgyx-Xkrvgp-Zdfmoq Hx Immunizations Up To Date Tetanus Booster (TDap): Unknown Seasonal Allergies Seasonal Allergies: Yes Past Medical History Surgery/Hospitalization HX: Atrial Fibrillation Surgeries: Yes (ABD EXPLORE) Orthopedic Respiratory: No Cardiac: Yes Atrial Fibrillation, High Cholesterol, Hypertension Neurological: No Reproductive Disorders: No Genitourinary: No Gastrointestinal: Yes Gastroesophageal Reflux, Gall Bladder Disease Musculoskeletal: Yes (DJD) Arthritis Endocrine: No HEENT: No Cancer: No Psychosocial: No Integumentary: No Blood Disorders: No Family Medical History No Pertinent Family Hx Physical Exam Vital Signs Vital Signs - First Documented 05/19/23 23:01 Temp 37.0 Pulse 74 Resp 18 B/P (MAP) 175/97 (123) Pulse Ox 97 O2 Delivery Room Air Capillary Refill : Height, Weight, BMI Height: 5'1.00" Weight: 192lbs. 0.0oz. 87.461154ox; 36.00 BMI Method:Stated General Appearance: WD/WN, no apparent distress Cardiovascular: normal peripheral pulses Knees: left knee pain (Pain on the anterior portion of the knee and upper tibia. No crepitus or step-off noted), left knee soft tissue tenderness Neurologic/Tendon: normal sensation, normal motor functions Neurologic/Psychiatric: alert, oriented x 3 Skin: normal color, warm/dry; No ecchymosis Progress/Results/Core Measures Results/Orders My Orders Orders - KASHIF TORRE MD Ice: Apply To Affected Area (05/19/23 23:01) Knee 3 View Left (05/19/23 23:01) Eddi Bandage (05/19/23 23:23) Vital Signs/I&O 05/19/23 23:01 Temp 37.0 Pulse 74 Resp 18 B/P (MAP) 175/97 (123) Pulse Ox 97 O2 Delivery Room Air Progress Progress Note #1: Progress Note Potential diagnosis of tibial plateau fracture, patella fracture, fibula fracture, tibia fracture, joint sprain. Apply ice pack and elevate to try and help with pain. Obtain x-rays of the left knee to look for acute bony abnormality or injury. Defer pain medicine until x- rays to see if there is any broken bones. Progress Note #2: Time: 23:18 Progress Note On my personal interpretation and review of the three-view films of the left knee she has no acute fracture or dislocation. There is arthritic changes and calcification in vessels. Will treat with Eddi bandage for compression and support. She states she does have a walker at home so we will have her do that for weightbearing as tolerated. Continue with ice and elevation to help with pain and any swelling. Check back with her primary care provider if not improving or having more symptoms. After reviewing x-ray findings and plan with the patient she stated she wanted to just stick with Tylenol for pain. She said that she did not tolerate the narcotics very well and she cannot do NSAIDs because she is taking Xarelto. Encouraged to check back with the clinic for possible MRI and/or physical therapy if not improving or getting worse. Diagnostic Imaging Diagonstic Imaging: Xray Plain Films/CT/US/NM/MRI: knee Reviewed: Reviewed by Me Departure Impression Primary Impression: Left anterior knee pain Additional Impression: Sprain of knee Qualified Codes: S83.92XA - Sprain of unspecified site of left knee, initial encounter Disposition: HOME, SELF-CARE Condition: Stable Departure-Patient Inst. Decision time for Depature: 23:21 Referrals: ABDIEL POLO DO (PCP/Family) Primary Care Physician Patient Instructions: How to Use a Walker, Knee Pain ED, Knee Sprain ED, Using Cold for Pain Add. Discharge Instructions: Use Eddi wrap bandage for compression and support. Use walker for weightbearing as tolerated. Try to keep your leg elevated and use ice to help with pain and swelling. Ice 20-30 minutes every few hours as needed to help with pain and swelling. If not improving check back with your primary provider as they may need to do physical therapy or an MRI to look at the soft tissues better. Use acetaminophen 650 mg every 4-6 hours as needed for pain KASHIF TORRE MD May 19, 2023 23:07
--- NOTE | 2023-05-20 07:05 | Diagnostic Imaging Report ---
HISTORY: Left knee pain after injury TECHNIQUE: 3 views left knee COMPARISON: None FINDINGS: No acute fracture or dislocation is seen in the left knee. Bone density appears diffusely low. There is calcific atherosclerosis. Joint spaces are generally well preserved for age. No large effusion is seen as the lateral view is suboptimally rotated. IMPRESSION: 1. No acute osseous abnormality is seen in the left knee. Dictated by: Dictated on workstation # [id number]
== END 2023-05-19 23:49 | disposition home or self-care (01) ==
LOC: EDUNIT# 22:59 → ER FS 23:01
DX: S83.92XA Sprain of unspecified site of left knee, initial encounter (principal); X50.1XXA Overexertion from prolonged static or awkward postures, initial encounter
CPT/HCPCS: 73562